=== PATIENT | male | born 1945 | race Caucasian/White ===

== ENCOUNTER 2016-07-17 12:13 | Inpatient (IN) | payer OTHER ==
[2016-07-17] MEDS ORDERED: BOOSTRIX VACCINE IM ONE (12:42)
--- NOTE | 2016-07-17 12:47 | PROVIDER DOCUMENTATION ---
Addendum entered and electronically signed by Daphnie Su Scribe 07/17/16 15:10 : EKG Interpretation - EKG Time of EKG reading by physician:: 14:40 EKG Read and Signed by:: Denys Frazier EKG Interpretation (*Must complete 3 of following elements*): Abnormal Rate: 70 Rhythm: normal sinus rhythm Comments: possible L atrial enlargement; nonspecific T wave abnormality. Original Note: HPI-Musculoskeletal Pain/Inj - GENERAL Source: patient, family (son in law) - HX OF PRESENT ILLNESS-MUSKULOSKELTAL Quality of Pain: reports: aching Severity in ED: mild Onset/Duration: this morning Timing: still present, intermittent, getting worse Modifying Factors: improves with: nothing Any recent injury?: Yes (fall) Locality of Occurance: Home Similar Symptoms Previously?: No Recently seen or treated by another doctor?: No - FALL INJURY Location of Pain/Injury: reports: head (hit head during fall), lower extremity ( L hip) Pain Radiation: reports: no radiation Reason for Fall: reports: unknown Symptoms prior to fall:: reports: none Loss of Consciousness: no loss of consciousness Injury Associated Symptoms: reports: joint pain (L hip), trouble walking (due to prior stroke). denies: arm pain, back/neck pain, chest pain, diaphoresis, dizziness, headaches, muscle aches, nausea, puncture wound, shortness of breath , sensory/motor loss, snap/crack/pop sensation, pain with inspiration, unable to bear weight, vomiting, weakness - HIP/PELVIS PAIN/INJURY Hip Pain Location: reports: hip (L) Pain Radiation: reports: no radiation Context / Method of Injury: reports: fall Associated Symptoms: reports: weakness in legs/feet (L weakness due to prior stroke). denies: loss of bladder control, loss of bowel control, lower back pain, muscle spasms, numbness in legs/feet, sensory/motor loss, tingling in legs /feet - LOWER EXTREMITY PAIN/INJURY Lower Extremities Pain: hip: left (pain ) Context / Method of Injury: reports: fell Associated Symptoms: reports: weakness in legs/feet (L due to prior stroke). denies: loss of bladder control, loss of bowel control, lower back pain, muscle spasms, numbness in legs/feet, sensory/motor loss, tingling in legs/feet <Daphnie Su - Last Filed: 07/17/16 12:42> <Harry Fraziercody Jim - Last Filed: 07/17/16 13:20> - GENERAL Chief Complaint: Fall Stated Complaint: FALL, L HIP PAIN Time Seen by Provider: 07/17/16 12:30 - HX OF PRESENT ILLNESS-MUSKULOSKELTAL Nature of Presenting Problem: Pt is 71 y/o M presents to the ED with fall. Pt's son in law states Pt fell after going to the bathroom. Pt's son in law states fall happened at 0300 this morning. Pt's son in law states Pt hit his head when he fell. Pt states having a stroke in December of 2015. (Daphnie Su) Review of Systems - Adult - REVIEW OF SYSTEMS - ADULT Constitutional: denies: chills, fever Eyes: denies: blurred vision, double vision Ears, Nose, Mouth & Throat: denies: ear pain, nose pain, throat pain Cardiovascular: denies: chest pain, heart murmur, irregular heart rate Respiratory: denies: cough, shortness of breath, wheezing Gastrointestinal: denies: abdominal pain, diarrhea, nausea, vomiting Genitourinary: denies: dysuria, discharge, hematuria Musculoskeletal: reports: joint pain (L hip). denies: bone pain, neck pain Integumentary: denies: hives, itching Neurological: denies: dizziness/vertigo, headache/migraines Psychiatric: reports: no symptoms reported Endocrine: reports: no symptoms reported Hematologic/Lymphatic: reports: no symptoms reported Allergic/Immunologic: reports: no symptoms reported All Other Systems: Reviewed and Negative <Daphnie Su - Last Filed: 07/17/16 12:42> Past History - Adult - PAST MEDICAL HISTORY-ADULT Review of Records: reports: Nursing Assessment Review, Medications Reviewed, Social history reviewed & non-contributory. Major Childhood Illnesses: reports: denies history Cardiovascular: reports: CAD, HTN, hyperlipidemia Respiratory: reports: COPD Gastrointestinal: reports: GERD Obstetrical/Gynecological: reports: denies history Genitourinary: reports: denies history Musculoskeletal: reports: chronic pain Neurological: reports: CVA Endocrine/Immune: reports: denies history Other Conditions: reports: denies history - PRIOR SURGERIES/PROCEDURES Surgical/Procedure History: reports: cardiac stent, other (prostate) - PRIOR HOSPITALIZATIONS Prior Hospitalizations: reports: none - IMMUNIZATION STATUS Childhood Immunizations: See Nurse Assessment Flu Vaccine: See Nurse Assessment - FAMILY HISTORY Family History: reviewed, not pertinent - SOCIAL HISTORY Smoking: cigarettes, greater than 1 pack/day Provider spent 3-5 mins advising pt. on dangers of tobacco.: Discussed manners to quit use, and f/u contacts for add'l counseling. Substance Use: denies Living Situation: family <Daphnie Su - Last Filed: 07/17/16 12:42> Physical Exam-Injury Related - Physical Exam-Injury Related General Appearance: appears well, alert, no apparent distress Eyes: PERRL/EOMI, pink conjunctivae Head, Ears, Nose, Mouth & Throat: normocephalic/atraumatic, moist mucous membranes, normal ENT inspection, TMs normal, pharynx normal Neck: non-tender, full range of motion, supple, normal inspection Respiratory: chest non-tender, lungs clear, normal breath sounds, no pleuratic chest pain, no respiratory distress, no accessory muscle use Cardiovascular: normal peripheral pulses, regular rate, rhythm, no edema, no gallop, no JVD, no murmur Abdominal Exam: normal bowel sounds, non tender, soft, no organomegaly, no pulsatile mass Lymphatic: no adenopathy Back Exam: normal inspection, no CVA tenderness, no vertebral tenderness Extremity: no pedal edema, no calf tenderness, normal capillary refill, pelvis stable, tenderness (L hip). 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 Will admit to Dr. Porter for Dr. Puga) - CONSULTS/PCP/HOSPITALIST Notification Time Discussed: 13:17 Reason/Comments: Dr. Rosales Consult Disposition: Will see in ED, Admit <Denys Frazier X - Last Filed: 07/17/16 13:20> - PLAN OF CARE/RESULTS Progress/Plan/Lab Results: Orders Category Date Time Status CHEST-PORTABLE [RAD] Stat Exams 07/17/16 12:15 Ordered LOWER LEG-RIGHT [RAD] Stat Exams 07/17/16 12:42 Ordered XRAY PELVIS W/HIP 2-3VW LT [RAD] Stat Exams 07/17/16 12:21 Ordered Diph,Pertuss(Acell),Tet Vac/Pf [Boostrix Vaccine] Med 07/17/16 12:42 Discontinued 0.5 ml IM .ONCE ONE Vital Signs - 24 hr 07/17/16 12:16 Temperature 99.3 F Pulse Rate 71 Respiratory 17 Rate Blood Pressure 164/66 O2 Sat by Pulse 97 Oximetry (Daphnie Su) Orders Category Date Time Status Cardiac Monitoring DIRECTED Care 07/17/16 13:06 Active Saline Loc NOW Care 07/17/16 13:06 Active CHEST-PORTABLE [RAD] Stat Exams 07/17/16 12:15 Taken LOWER LEG-RIGHT [RAD] Stat Exams 07/17/16 12:42 Taken XRAY PELVIS W/HIP 2-3VW LT [RAD] Stat Exams 07/17/16 12:21 Taken CBC WITH ELECTRONIC DIFF [HEME] Stat Lab 07/17/16 13:06 Uncollected CK PROFILE [SP CHEM] Stat Lab 07/17/16 13:06 Uncollected COMPREHENSIVE METABOLIC PANEL [CHEM] Stat Lab 07/17/16 13:06 Uncollected MAGNESIUM [CHEM] Stat Lab 07/17/16 13:06 Uncollected PRO B-NATRIURETIC PEPTIDE Stat Lab 07/17/16 13:06 Uncollected PROTIME WITH INR [COAG] Stat Lab 07/17/16 13:06 Uncollected PTT [COAG] Stat Lab 07/17/16 13:06 Uncollected TROPONIN T Stat Lab 07/17/16 13:06 Uncollected 0.9% Sodium Chloride Inj [Ns] 1,000 ml Med 07/17/16 13:08 Active IV 999 mls/hr Diph,Pertuss(Acell),Tet Vac/Pf [Boostrix Vaccine] Med 07/17/16 12:42 Discontinued 0.5 ml IM .ONCE ONE Hydromorphone [Dilaudid] Med 07/17/16 13:10 Discontinued 1 mg IV NOW ONE Ondansetron [Zofran] Med 07/17/16 13:10 Discontinued 4 mg IV NOW ONE EKG [EKG] Stat Ther 07/17/16 13:06 Ordered Vital Signs Temp Pulse Resp BP Pulse Ox 07/17/16 12:16 99.3 F 71 17 164/66 97 levofloxacin [[facility]] Allergy (Severe, Verified 07/17/16 12:25) RASH morphine Adverse Reaction (Severe, Verified 07/17/16 12:25) Unknown causes a change in mental status Omeprazole [Prilosec] 40 mg PO DAILY 09/06/14 Citalopram Hydrobromide [Celexa] 40 mg PO DAILY 12/29/15 ATORVAstatin [Lipitor] 40 mg PO QHS #0 tablet 01/19/16 Apixaban [Eliquis] 5 mg PO BID #60 tablet 01/19/16 Folic Acid 1 mg PO DAILY #0 tablet 01/19/16 Hydrocodone/APAP 10 mg/325 mg [Tok-10] 1 each PO TID PRN #30 tablet 01/19/16 Lamotrigine [Lamictal] 50 mg PO BID #0 tablet 01/19/16 Tiotropium [place] Inhaler [Spiriva] 1 puff INH RTDAILY #1 inhaler 01/19/16 Diltiazem C.d. [Cardizem Cd] 180 mg PO HS 04/08/16 Aspirin 81 mg PO DAILY #30 chewtab 04/10/16 Doxycycline 100 mg PO BID #10 capsule 04/25/16 Furosemide [Lasix] 20 mg PO DAILY #60 tablet 04/25/16 LISINOpril [Prinivil] 5 mg PO DAILY #120 tablet 04/25/16 (Denys Frazier) Departure <Daphnie Su - Last Filed: 07/17/16 12:42> - Departure Time of Disposition Order: 13:17 Certified Medical Emergency: Emergent <Denys Frazier - Last Filed: 07/17/16 13:20> - Departure DIAGNOSIS: Closed left hip fracture Qualifiers: Encounter type: initial encounter Qualified Code(s): S72.002A - Fracture of unspecified part of neck of left femur, initial encounter for closed fracture Disposition: HOME 01 Condition: Stable Attestation - Scribe Verification/Attestation Scribe:: Daphnie Su Acting as Scribe for:: Denys Frazier Scribe documention review:: This chart was documented by a scribe and accurately reflects the service the provider performed and the decisions made by the provider. <Daphnie Su - Last Filed: 07/17/16 12:42> Physician Attestation
[2016-07-17] MEDS ORDERED: NS 1,000 ML IV ONE (13:08)
[2016-07-17] MEDS ORDERED: ZOFRAN IV ONE (13:10)
[2016-07-17] MEDS ORDERED: DILAUDID IV ONE (13:10)
[2016-07-17 14:13] LABS: MANUAL DIFF NEEDED? NO
[2016-07-17 14:17] LABS: BASO% 0.2 % (0.0-0.8); EOS# 0.32 X1000 (0.0-0.7); EOS% 2.4 % (0.0-10.0); HEMOGLOBIN 11.5 g/dL (14.0-18.0); IMM GRAN# 0.03 X1000 (0.0-0.04); IMM GRAN% 0.2 % (0.0-0.5); LYMPH# 2.27 X1000 (1.2-3.4); LYMPH% 17.3 % (20.5-51.1); MCH 25.2 PG (27-31); MCHC 31.9 g/dL (33-37); MCV 78.9 FL (81-99); MONO# 1.23 X1000 (0.11-0.59); MONO% 9.4 % (1.7-9.3); MPV 10.5 FL (7.4-10.4); NEUT% 70.5 % (42.2-75.2); PLT 269 X1000 (130-400); RBC 4.56 XMIL (4.7-6.1)
[2016-07-17 14:26] LABS: INR 1.05; PROTIME 11.1 Seconds (9.2-11.7); PTT 26.8 Seconds (22.0-36.0)
[2016-07-17 14:33] LABS: AGAP 13; ALBUMIN 3.7 g/dL (3.5-5.0); ALKALINE PHOSPHATASE 136 U/L (32-122); BUN 14 mg/dL (8-22); CALCIUM 8.8 mg/dL (8.8-10.2); CHLORIDE 99 mmol/L (98-107); COSMO 272; GOT 24 U/L (10-34); GPT 19 U/L (10-44); MAGNESIUM 2.1 mg/dL (1.5-2.7); POTASSIUM 4.8 mmol/L (3.5-5.1); SODIUM 136 mmol/L (136-145); TCO2 24 mmol/L (25-35); TOTAL BILIRUBIN 0.35 mg/dL (0.20-1.00); TOTAL PROTEIN 6.7 g/dL (6.3-8.3)
[2016-07-17] MEDS ORDERED: TYLENOL PO PRN (14:55)
[2016-07-17] MEDS ORDERED: ZOFRAN IV PRN (14:55)
[2016-07-17 15:18] LABS: CK PROFILE 129 U/L (24-204)
[2016-07-17] MEDS: NORCO-7.5 PO PRN ×2 (16:12→20:37)
--- NOTE | 2016-07-17 17:44 | HISTORY AND PHYSICAL ---
HISTORY OF PRESENT ILLNESS: This is a 71-year-old male well known to our service. He has a history of: 1. Severe coronary artery disease. 2. Severe carotid artery disease. 3. Severe COPD requiring home O2. 4. Chronic pain syndrome. For a time he was on narcotic therapy. OTHER PAST MEDICAL HISTORY: 1. Recent CVA and left-sided hemiparesis. 2. Hypertension. 3. Chronic pain syndrome. 4. Nicotine dependence. 5. Questionable history of polysubstance abuse in the past. 6. Paroxysmal atrial fibrillation. PAST SURGICAL HISTORY: Had a carotid endarterectomy. Recent cervical spine fusion. Coronary stent placement. Cataract removal with IOL insertion bilaterally. SOCIAL HISTORY: Patient lives with his son who checks on him. Daughter checking on him constantly. He has remote history of alcohol dependence, he was smoking 2 packs a day and does not use any illicit drugs. Questionable history of prescription drug dependence in the past. According to his daughter he has had trouble with this before, getting medications there really altered mental status. HISTORY OF PRESENT ILLNESS: Apparently he got up to go to the bathroom and he urinated on the floor and slipped on the urine, fell and broke his left hip. He has a left intertrochanteric hip fracture. FAMILY HISTORY: Noncontributory. REVIEW OF SYSTEMS: General: No weight gain or loss. No fever or chills. HEENT: Unremarkable. Respiratory: No increased work of breathing or dyspnea. Cardiovascular: No chest pain or tachy palpitation. GI: Unremarkable. : Unremarkable. Musculoskeletal/Neurologic: No significant complaints. Endocrinologic/Hematologic: No significant history. PHYSICAL EXAMINATION: VITAL SIGNS: Temperature 99.3 degrees, pulse 70, respirations 17, blood pressure 164/66. O2 saturation 97%. HEENT: Pupils are equal, round, reactive. Oral and nasal mucosa unremarkable. CVP less than 6 cm. LUNGS: Clear in all lung gallego. CARDIOVASCULAR: Regular rate without murmur or S3. ABDOMEN: Soft. SKIN: Warm and dry. Weight 142 pounds, height 6 feet. EXTREMITIES: Left leg external rotation shorter than the right. Pain and swelling in the left hip. He has been given some medication. I think he is sleeping at the present time. HISTORY OF HOME MEDICATIONS: Lipitor 40 mg at bedtime, Eliquis 5 mg p.o. b.i.d., aspirin 81 mg a day, Celexa 40 mg a day, Cardizem CD 180 mg at bedtime, doxycycline 100 mg b.i.d., folic acid 1 daily, Lasix 20 mg daily, hydrocodone at 10 mg-325, he takes it 3 times a day p.r.n. for pain, Prinivil 5 mg a day, Lamictal 50 mg b.i.d., Prilosec 40 mg a day, tiotropium bromide inhaler (Spiriva) 1 puff daily. ASSESSMENT AND PLAN: 1. Left intertrochanteric hip fracture. I will admit, put into [place] traction. We are going to need to stop his Eliquis and he will probably need to wait a couple days before he will be eligible for surgery. We will give him some IV fluids. I want to check some blood work. Check his renal function, liver function and blood counts. Check an electrocardiogram and chest x-ray. 2. History of cerebrovascular accident fairly recently. Aware. Left side weakness. Shuffles with that left side, but he can get into a wheelchair and I do think we are going to have to pursue repairing this fracture. 3. History of severe coronary artery disease. Severe carotid artery disease. He has had a left carotid endarterectomy. 4. Chronic obstructive pulmonary disease. He is on home O2. Air exchange and gas exchange appear to be pretty good at this time. We will check some blood gases. 5. Paroxysmal atrial fibrillation, aware.
--- NOTE | 2016-07-17 18:14 | Diag Imaging Result Document ---
PROCEDURE NAME: CHEST-PORTABLE - 07/17/2016 AP CHEST: FINDINGS: There is a pleural effusion on the right which is slightly smaller than on 06/04/2016. There is still some compressive atelectasis in the right base. IMPRESSION: Improving right pleural effusion.
--- NOTE | 2016-07-17 18:15 | Diag Imaging Result Document ---
PROCEDURE NAME: LOWER LEG-RIGHT - 07/17/2016 RIGHT LOWER LEG AP AND LATERAL , 4 VIEWS: FINDINGS: There is no evidence of fracture or dislocation. No other definite bony abnormalities are present. IMPRESSION: No acute disease.
--- NOTE | 2016-07-17 18:19 | Diag Imaging Result Document ---
PROCEDURE NAME: XRAY PELVIS W/HIP 2-3VW LT - 07/17/2016 AP PELVIS AND LEFT HIP: FINDINGS: There is an intertrochanteric fracture on the left. The hip joint spaces are well maintained. There is generalized osteopenia. IMPRESSION: Left intertrochanteric fracture.
[2016-07-17] MEDS: LAMICTAL PO SCH (20:36)
[2016-07-17] MEDS: CARDIZEM CD PO SCH (20:36)
[2016-07-17] MEDS: LIPITOR PO SCH (20:37)
--- NOTE | 2016-07-17 22:23 | CONSULTATION ---
DATE OF CONSULTATION: 07/17/2016 CHIEF COMPLAINT: Left hip pain. HISTORY OF PRESENT ILLNESS: Mr. Del Angel is a 71-year-old male who fell in his home today and came to the ER with left hip pain. X-rays showed a left hip fracture. He was admitted to the Medicine Service and Orthopedics was consulted. Most of his pain is in the left hip. He cannot ambulate secondary to the pain. Any movement causes pain. Keeping it still makes it feel the best. PAST MEDICAL HISTORY: Fairly extensive, recent CVA, left-sided hemiparesis, carotid artery stenosis, coronary artery disease, hypertension, COPD, atrial fibrillation. PAST SURGICAL HISTORY: Carotid endarterectomy, ACDF, fusion, coronary artery stent. SOCIAL HISTORY: The patient lives with his son. He does use alcohol and smokes a lot. HOME MEDICATIONS: Celexa, Cardizem, Prilosec, Percocet, Lipitor, Eliquis, aspirin, folic acid, [place], Lamictal, Spiriva. ALLERGIES: Levaquin and morphine. REVIEW OF SYSTEMS: Positive for left hip pain, recent stroke. Recent hospitalization for unresponsiveness. PHYSICAL EXAMINATION: General: Mildly distressed 71-year-old male lying in bed. Head and neck: Normocephalic, atraumatic. Respirations: Nonlabored. Cardiovascular: Regular rate. Abdomen: Nondistended. Extremity: Left lower exam, tenderness to palpation of the left hip, no tenderness to palpation at the knee or ankle. He can dorsiflex plantarflex the ankle and toes very well. Good sensation to light touch to the toes and a 1+ DP pulse. He has an area of ecchymosis on the right leg, but no tenderness to palpation around that area. No tenderness to palpation of the bilateral upper extremities. Although he has some skin tears to that left arm. RADIOGRAPHS: Two views of the left hip shows an intertrochanteric fracture with some shortening. Left lower extremity exam, I do not see a fracture. ASSESSMENT: Left intertrochanteric fracture. PLAN: I discussed with Mr. Del Angel and his caregiver who is in the room about this hip fracture. I would recommend surgical intervention for this, which would be a left trochanteric femoral nailing. I went over with him the procedure, risks, benefits, potential complications. Risks include, but are not limited to infection, wound healing problems, damage to nerves, arteries, veins, numbness, malunion, nonunion, hardware-related issues, continued pain, deep venous thrombosis and anesthesia-related risks. After discussing these with the patient, he expressed understanding and wished to proceed. This will be somewhat of a high risk surgery secondary to his medical comorbidities, especially with his heart history and his stroke history, but I discussed with him that if we do not do surgery, then the likelihood of him walking is extremely low and his mortality rate will go really high. So we will plan on getting this done in the morning. He will be nothing per oral after midnight.
[2016-07-18] MEDS: NORCO-7.5 PO PRN ×3 (01:47→16:43)
[2016-07-18] MEDS: NS 1,000 ML IV SCH ×3 (01:47→15:02)
[2016-07-18 05:46] LABS: MANUAL DIFF NEEDED? NO
[2016-07-18 06:00] LABS: BASO% 0.3 % (0.0-0.8); EOS# 0.74 X1000 (0.0-0.7); EOS% 7.6 % (0.0-10.0); HEMATOCRIT 32.8 % (42.0-52.0); HEMOGLOBIN 10.3 g/dL (14.0-18.0); IMM GRAN# 0.02 X1000 (0.0-0.04); IMM GRAN% 0.2 % (0.0-0.5); LYMPH# 2.58 X1000 (1.2-3.4); LYMPH% 26.7 % (20.5-51.1); MCH 25.2 PG (27-31); MCHC 31.4 g/dL (33-37); MCV 80.2 FL (81-99); MONO# 0.92 X1000 (0.11-0.59); MONO% 9.5 % (1.7-9.3); MPV 10.6 FL (7.4-10.4); NEUT% 55.7 % (42.2-75.2); PLT 247 X1000 (130-400); RBC 4.09 XMIL (4.7-6.1)
[2016-07-18] MEDS: PRILOSEC PO SCH (06:58)
[2016-07-18 07:20] LABS: ALBUMIN 3.2 g/dL (3.5-5.0); CALCIUM 8.5 mg/dL (8.8-10.2); POTASSIUM 4.6 mmol/L (3.5-5.1); TOTAL BILIRUBIN 0.36 mg/dL (0.20-1.00)
--- NOTE | 2016-07-18 08:29 | PROGRESS NOTE ---
DATE: 07/18/2016 SUBJECTIVE: Mr. Del Angel is lying in bed this morning. He says he is ready to get his leg fixed. Still complained of pain on the left side whenever he moves. OBJECTIVE: Left lower extremity exam, still some tenderness to palpation to the left hip. The left hip was marked as the correct surgical site at bedside with his son in the room, and his caregiver was in the room with us. He is still able to dorsiflex and plantar flex the toes and foot very well. ASSESSMENT: Left intertrochanteric femur fracture. PLAN: Will plan on fixing this hip today with trochanteric femoral nailing. Mr. Del Angel was NPO and we will get him down stairs soon.
--- NOTE | 2016-07-18 08:32 | EKG Report ---
Test Performed on : 07/17/2016 2:40:12 PM Test Reason : Chest Pain Blood Pressure : / mmHG Vent. Rate : 070 BPM Atrial Rate : 070 BPM P-R Int : 126 ms QRS Dur : 082 ms QT Int : 422 ms P-R-T Axes : 078 063 071 degrees QTc Int : 455 ms Normal sinus rhythm. Possible Left atrial enlargement Nonspecific T wave abnormality Abnormal ECG When compared with ECG of 17-JUL-2016 14:39, (Unconfirmed) Sinus rhythm. has replaced Atrial flutter. Unconfirmed Result
[2016-07-18] MEDS: PRINIVIL PO SCH (08:57)
[2016-07-18] MEDS: LAMICTAL PO SCH ×3 (08:57→22:54)
[2016-07-18] MEDS: ASPIRIN PO SCH (08:57)
[2016-07-18] MEDS: CELEXA PO SCH (08:58)
[2016-07-18] MEDS ORDERED: NON-FORMULARY MED (Omeprazole [Prilosec] 40 MG) PO SCH (09:00)
[2016-07-18] MEDS: SPIRIVA INH SCH (09:32)
[2016-07-18] MEDS ORDERED: KEFZOL 1 GM/D5W 50 ML ONE (12:46)
[2016-07-18] MEDS ORDERED: CLAVE SECONDARY SET 11953 ONE (12:46)
[2016-07-18 14:05] LABS: URINE MICRO REVIEW NEEDED? NO; URINE SOURCE CATH
[2016-07-18 14:09] LABS: BILIRUBIN URINE NEGATIVE (NEGATIVE); BLOOD URINE NEGATIVE (NEGATIVE); COLOR YELLOW; GLUCOSE URINE NEGATIVE (NEGATIVE); LEUKOCYTES URINE NEGATIVE (NEGATIVE); NITRITE URINE NEGATIVE (NEGATIVE); PH URINE 5.5; PROTEIN URINE NEGATIVE (NEGATIVE); SP GRAVITY URINE 1.016; TURBIDITY URINE CLEAR (CLEAR); UROBILINOGEN URINE NORMAL (NORMAL)
[2016-07-18 14:10] LABS: UR EPITHELIAL CELLS <10 /HPF (<10); URINE BACTERIA NEGATIVE /HPF; URINE RBC <10 /HPF (<10); URINE WBC <10 /HPF (<10)
[2016-07-18] MEDS ORDERED: FENTANYL ONE (14:29)
[2016-07-18] MEDS ORDERED: DIPRIVAN 1% ONE (14:30)
--- NOTE | 2016-07-18 14:33 | OPERATIVE NOTE ---
PROCEDURE DATE: 07/18/2016 PREOPERATIVE DIAGNOSES: Left intertrochanteric femur fracture. POSTOPERATIVE DIAGNOSIS: Left intertrochanteric femur fracture. PROCEDURE PERFORMED: Left trochanteric femoral nailing. SURGEON: Kenny Queen MD SODA WORKER: None. ANESTHESIA: Spinal. BLOOD LOSS: About 30 mL. IMPLANT: Synthes trochanteric femoral nail 11 x 400. DISPOSITION: To PACU, hemodynamically stable. INDICATIONS FOR PROCEDURE: Mr. Malgorzata Del Angel is a 71-year-old male who presented to the emergency department here at [facility] for left hip pain after a fall. He was diagnosed with a left intertrochanteric fracture. I saw him yesterday and discussed with him about surgical intervention, and he wished to proceed. DESCRIPTION OF PROCEDURE: Mr. Del Angel was identified in the preoperative holding area. I had marked his left hip this morning when I saw him at bedside and it was confirmed that the left was the correct surgical site. He was then wheeled to the operating room and kept on his own bed. Spinal anesthesia was administered. He was then placed on the traction bed with the traction boots on both feet. Some slight traction was placed on the left lower extremity. Fluoroscopic imaging showed that we had good reduction, after which we applied some traction and some manipulation. The left lower extremity was then prepped with ChloraPrep and draped in the normal sterile fashion. A surgical pause was performed. We identified the correct patient, the correct side, and the correct procedure. Preoperative antibiotics were given. I started with an incision just proximal to the greater trochanter. I got my guidewire in an optimal position for a trochanteric femoral nail. I advanced it and then opened up to the canal with my opening reamer. I passed a long guidewire down, sized it to a size 400 and then sequentially reamed to a size 12. We elected to use an 11 x 400 Synthes trochanteric femoral nail. We passed it down. I made an incision on the lateral aspect to advance the guidewire for the blade. AP and lateral images showed that we had good reduction and also good position of the wire on AP and lateral views. I then drilled and then passed the blade. I locked it into place. I did a little bit of compression on there. I then took the outrigger off. Final images were taken, which showed we had good reduction of our intertrochanteric fracture. It was very stable, so I elected not to put any distal interlocking screws in. Incisions were then irrigated copiously with normal saline. The deep layer was closed with 0 Vicryl, 2-0 Vicryl for the subcu, and armaan on the skin. Adaptic, 4 x 4's, ABD, and tape were then applied. The patient was then moved to his own bed and taken to the PACU in stable condition. Postoperatively, he will be weightbearing as tolerated on the left lower extremity. He will start back on his Eliquis postoperatively. We will get Bottle House Pumper involved for placement.
[2016-07-18] MEDS ORDERED: OXY IR PO PRN ×2 (15:27→17:54)
[2016-07-18] MEDS ORDERED: MORPHINE IV PRN (15:27)
[2016-07-18] MEDS ORDERED: HALDOL IV PRN (15:27)
[2016-07-18] MEDS ORDERED: MILK OF MAGNESIA PO PRN (15:27)
[2016-07-18] MEDS ORDERED: ZOFRAN IV PRN (15:27)
--- NOTE | 2016-07-18 15:31 | PROGRESS NOTE ---
DATE: 07/18/2016 SUBJECTIVE: Patient is complaining of mild pain in the left leg. OBJECTIVE: Vital Signs: Temperature 98.9 degrees, heart rate 55, respiratory 17, blood pressure 121/59, O2 saturation 95% on 2 L nasal cannula. General exam: This is a 71-year-old female lying in bed, in no acute distress. HEENT: Head is normocephalic, atraumatic. Anicteric sclerae. Pale conjunctivae. Mucous membranes moist. Neck: Supple. No JVD noted. No carotid bruits. No lymphadenopathy. No thyromegaly. Cardiovascular: S1, S2 heard. No murmurs, gallops, or rubs. Regular rate and rhythm. Respiratory: Clear bilaterally to auscultation. No work of breathing or using accessory muscles. Abdomen: Soft. Nontender to palpation. Bowel sounds present. No organomegaly. Extremities: Left leg external rotation and shortening of the left leg. Neurological: Patient moves 4 extremities. LABORATORY DATA: White cell count 9.68, hemoglobin 10.3, hematocrit 32.8, platelets 247,000. BMP unremarkable except worsening BABS at 1.5. ASSESSMENT AND PLAN: 1. Left intertrochanteric femur fracture. Patient has gone for surgery. 2. Acute kidney injury, worsening. The creatinine yesterday was 1.1 and today it is 1.5. At this time we are going to provide fluid resuscitation. In this case, this patient is clinically getting 85 mL/h normal saline. At this point we will continue with the same management. 3. History of severe coronary artery disease. At this point patient is not having any chest pain. We will continue with the same management. 4. Chronic obstructive pulmonary disease. Patient is not in any exacerbation and he uses home oxygen. Will continue with the same plan. 5. History of cerebrovascular accident. Left-sided weakness. The patient is doing fine.
[2016-07-18] MEDS: TYLENOL PO SCH ×2 (16:43→18:52)
[2016-07-18] MEDS: NICODERM PATCH TD SCH (17:25)
[2016-07-18] MEDS ORDERED: DILAUDID IV PRN (17:58)
[2016-07-18] MEDS: OXY IR PO PRN ×2 (18:52→22:12)
[2016-07-18] MEDS: OXYCONTIN PO SCH (19:02)
[2016-07-18] MEDS: KEFZOL 1 GM/D5W 50 ML IV SCH ×2 (19:49→22:54)
[2016-07-18] MEDS: LIPITOR PO SCH ×2 (19:50→22:54)
[2016-07-18] MEDS: CARDIZEM CD PO SCH ×2 (19:50→22:53)
[2016-07-18] MEDS: COLACE PO SCH ×2 (19:50→22:54)
[2016-07-18] MEDS: PERIDEX MT SCH (19:50)
[2016-07-18] MEDS: ELIQUIS PO SCH (23:10)
[2016-07-19] MEDS: PERIDEX MT SCH ×3 (01:21→20:32)
[2016-07-19] MEDS: OXY IR PO PRN ×5 (02:07→20:32)
[2016-07-19] MEDS: NS 1,000 ML IV SCH ×2 (02:11→18:07)
[2016-07-19 02:44] LABS: URINE SOURCE CATH
[2016-07-19 02:46] LABS: BILIRUBIN URINE NEGATIVE (NEGATIVE); BLOOD URINE NEGATIVE (NEGATIVE); COLOR YELLOW; GLUCOSE URINE NEGATIVE (NEGATIVE); LEUKOCYTES URINE TRACE (NEGATIVE); NITRITE URINE NEGATIVE (NEGATIVE); PROTEIN URINE TRACE mg/dL (NEGATIVE); SP GRAVITY URINE 1.028; TURBIDITY URINE CLEAR (CLEAR); UROBILINOGEN URINE NORMAL (NORMAL)
[2016-07-19 02:47] LABS: URINE MICRO REVIEW NEEDED? YES
[2016-07-19 02:55] LABS: UR EPITHELIAL CELLS <10 /HPF (<10); URINE BACTERIA NEGATIVE /HPF; URINE CULTURE NEEDED? YES; URINE RBC <10 /HPF (<10); URINE WBC <10 /HPF (<10)
[2016-07-19 03:15] LABS: URINE CASTS NONE SEEN; URINE CRYSTALS NONE SEEN; URINE SMALL ROUND CELLS NONE SEEN
[2016-07-19] MEDS: KEFZOL 1 GM/D5W 50 ML IV SCH ×2 (05:44→13:01)
[2016-07-19] MEDS: TYLENOL PO SCH ×3 (05:44→20:34)
[2016-07-19] MEDS ORDERED: LOVENOX SUBQ SCH (06:00)
[2016-07-19 06:03] LABS: HEMATOCRIT 35.6 % (42.0-52.0)
[2016-07-19 06:22] LABS: AGAP 12; BUN 17 mg/dL (8-22); CALCIUM 8.8 mg/dL (8.8-10.2); CHLORIDE 103 mmol/L (98-107); COSMO 279; SODIUM 139 mmol/L (136-145); TCO2 24 mmol/L (25-35)
--- NOTE | 2016-07-19 07:12 | PROGRESS NOTE ---
DATE: 07/19/2016 SUBJECTIVE: Mr. Del Angel is postoperative day 1 from his left hip trochanteric femoral nailing, and he is a little bit confused this morning, but overall, his pain seems fairly well controlled. OBJECTIVE: Left lower extremity exam, the dressings are clean, dry, and intact. He can dorsiflex and plantar flex the foot well. He has good sensation to light touch to the toes. ASSESSMENT: Status post left trochanteric femoral nailing for hip fracture. PLAN: I am okay with Mr. Del Angel being weight bear as tolerated to the left lower extremity. He is going to start working with physical therapy today. The social studies teacher team will also be involved for placement issues.
[2016-07-19] MEDS: OXYCONTIN PO SCH ×2 (07:13→18:48)
[2016-07-19] MEDS: PRILOSEC PO SCH (07:13)
[2016-07-19] MEDS: SPIRIVA INH SCH (08:01)
[2016-07-19] MEDS: ELIQUIS PO SCH ×2 (08:34→20:33)
[2016-07-19] MEDS: ASPIRIN PO SCH (08:34)
[2016-07-19] MEDS: PRINIVIL PO SCH (08:34)
[2016-07-19] MEDS: FERROUS SULFATE PO SCH (08:34)
[2016-07-19] MEDS: CELEXA PO SCH (08:35)
[2016-07-19] MEDS: LAMICTAL PO SCH ×2 (08:35→20:33)
[2016-07-19] MEDS: NICODERM PATCH TD SCH (08:36)
[2016-07-19] MEDS ORDERED: NS 250 ML ONE (08:43)
[2016-07-19] MEDS ORDERED: ZOFRAN ONE (08:43)
[2016-07-19] MEDS ORDERED: XYLOCAINE-MPF 2% ONE (08:43)
[2016-07-19] MEDS ORDERED: PIGGYBACK SET 7393 ONE (08:43)
[2016-07-19] MEDS ORDERED: LR 1,000 ML ONE (08:43)
[2016-07-19] MEDS ORDERED: NEO-SYNEPHRINE ONE (08:43)
[2016-07-19] MEDS ORDERED: ANESTHESIA PB SET 88 IN 5742 ONE (08:43)
[2016-07-19] MEDS ORDERED: EXTENSION SET 32 IN 4522 ONE (08:43)
--- NOTE | 2016-07-19 12:48 | PROGRESS NOTE ---
DATE: 07/19/2016 SUBJECTIVE: This is a 71-year-old patient with known severe coronary artery disease, severe carotid disease, severe COPD, chronic home O2, chronic pain syndrome. She had a recent CVA with left-sided hemiparesis, hypertension, chronic pain syndrome, nicotine dependence, paroxysmal atrial fib, and questionable history of substance abuse in the past. This 71-year-old male had presented with a left intertrochanteric hip fracture. Surgery performed this morning per Dr. Queen status post left trochanteric femoral nailing for hip fracture. This seems to be comfortable. PHYSICAL EXAMINATION: Vital Signs: On exam today, temp 98.9 degrees, pulse 69, respirations 18, and blood pressure 119/40. Lungs: Clear in all lung gallego. Cardiovascular: Regular rhythm and rate without murmur or S3. Abdomen: Soft. Skin: Warm and dry. INTAKE AND OUTPUT: Good urine output from yesterday. LABORATORY DATA: Lab reviewed from this morning. Hematocrit 35. Hemoglobin 11. ASSESSMENT AND PLAN: 1. Left intertrochanteric femoral fracture repair this morning. 2. Acute kidney injury. Watch creatinine. Yesterday, it was 1.5. Continue fluids. 3. History of coronary artery disease. History of peripheral vascular disease. 4. Chronic obstructive pulmonary disease, on home O2. 5. Recent cerebrovascular accident. Will repeat electrolytes again but, today, creatinine down to 1.1, which is encouraging, looking at lab. REVIEW OF RECORD: He is on oxycodone ER 30 mg q.12. Apixaban 5 mg b.i.d. Nicotine patch 21 mg patch daily. Iron 325 daily. Docusate 200 mg at bedtime. Lisinopril 5 mg a day. Lamictal 50 mg b.i.d. Celexa 40 mg a day. Lipitor 40 mg a day. Diltiazem CD 180 mg at bedtime. Will check electrolytes again in the morning. At present, he is getting normal saline at 85 mL an hour. His chest x-ray from the first, improving right pleural effusion. We will check another chest x-ray in the morning. Check electrolytes and CBC. Initiate physical therapy.
--- NOTE | 2016-07-19 13:32 | Diag Imaging Result Document ---
PROCEDURE NAME: CHEST-PORTABLE - 07/19/2016 PORTABLE CHEST X-RAY, 07/19/2016: COMPARISON: 07/17/2016. FINDINGS: There is perhaps slight worsening in the small right basilar pleural effusion. There is worsening in the right basilar infiltrate adjacent to this. There is some similar appearing patchy atelectasis in the left base. Heart size remains top normal. IMPRESSION: Slight worsening from prior.
--- NOTE | 2016-07-19 19:03 | DISCHARGE SUMMARY ---
ADMISSION DATE: 07/17/2016 DISCHARGE DATE: 07/20/2016 PAST MEDICAL HISTORY: 1. Severe coronary artery disease. 2. Severe carotid artery disease. 3. Severe COPD requiring home O2. 4. Chronic pain syndrome. OTHER PAST MEDICAL HISTORY: 1. Recent CVA left-sided hemiparesis. 2. Hypertension. 3. Chronic pain syndrome. 4. Nicotine dependence. 5. Questionable history of polysubstance abuse in the past. 6. Paroxysmal atrial fibrillation. PAST SURGICAL HISTORY: He has had a carotid endarterectomy, recent cervical spine fusion, coronary stent placement, cataract removal with an IOL insertion bilaterally. He presented after falling apparently slipped on urine on the floor and suffered a left intertrochanteric hip fracture. Admitted and put in Ford's traction. We stopped his Eliquis and he had surgical repair today per Dr. Queen. He tolerated the procedure well. I anticipate he will get to go to rehab tomorrow. He has had a history of pain medication over use and abuse in the past. He has had some episodes of confusion and some admissions for respiratory compromise as well in the past. Daughter is suspicious that he is taking more medications that he is supposed to. We will plan on letting him go tomorrow to rehab. DISCHARGE MEDICATIONS: I am going to try and keep the same as what he has here. Eliquis 5 mg b.i.d., aspirin 81 mg a day. Lipitor 40 mg a day. Celexa 40 mg a day. Diltiazem CD 180 mg at bedtime. Colace 200 mg at bedtime. Ferrous sulfate 325 mg daily, Lamictal 50 mg b.i.d., Prinivil 5 mg daily. Milk of Magnesia 30 mL p.r.n. and NicoDerm patch 21 mg daily, Prilosec 40 mg a day. OxyContin 30 mg p.o. q.12, Oxy IR 5-10 q.4 p.r.n., and Spiriva 1 puff daily.
[2016-07-19] MEDS: CARDIZEM CD PO SCH (20:32)
[2016-07-19] MEDS: COLACE PO SCH (20:32)
[2016-07-19] MEDS: LIPITOR PO SCH (20:33)
[2016-07-20] MEDS: OXY IR PO PRN ×4 (00:11→17:08)
[2016-07-20 05:29] LABS: MANUAL DIFF NEEDED? NO
[2016-07-20 05:44] LABS: BASO% 0.1 % (0.0-0.8); EOS# 0.77 X1000 (0.0-0.7); EOS% 11.3 % (0.0-10.0); HEMATOCRIT 27.6 % (42.0-52.0); HEMOGLOBIN 8.6 g/dL (14.0-18.0); LYMPH# 1.06 X1000 (1.2-3.4); LYMPH% 15.5 % (20.5-51.1); MCH 25.2 PG (27-31); MCHC 31.2 g/dL (33-37); MCV 80.9 FL (81-99); MONO# 0.73 X1000 (0.11-0.59); MONO% 10.7 % (1.7-9.3); MPV 10.6 FL (7.4-10.4); NEUT% 62.4 % (42.2-75.2); PLT 157 X1000 (130-400); RBC 3.41 XMIL (4.7-6.1)
[2016-07-20 06:02] LABS: AGAP 10; BUN 13 mg/dL (8-22); CALCIUM 9.1 mg/dL (8.8-10.2); CHLORIDE 101 mmol/L (98-107); COSMO 274; POTASSIUM 4.3 mmol/L (3.5-5.1); SODIUM 137 mmol/L (136-145); TCO2 26 mmol/L (25-35)
[2016-07-20] MEDS: OXYCONTIN PO SCH (06:51)
[2016-07-20] MEDS: PRILOSEC PO SCH (06:52)
[2016-07-20] MEDS: TYLENOL PO SCH ×2 (06:52→16:02)
--- NOTE | 2016-07-20 07:35 | PROGRESS NOTE ---
DATE: 07/20/2016 SUBJECTIVE: Mr. Del Angel is lying in bed this morning. Pain seems fairly well controlled. OBJECTIVE: Left lower extremity exam: Dressing is clean, dry, and intact. He is still neurovascularly intact in the left extremity. ASSESSMENT: Status post left trochanteric femoral nailing for intertrochanteric fracture. PLAN: Mr. Del Angel can continue to be weight bear as tolerated on the left lower extremity. Business Services Coordinator is looking at discharge options at this point. It looks like they are getting everything set up for [facility] rehab. I would like to see him back in my clinic in about 2 weeks.
[2016-07-20] MEDS: SPIRIVA INH SCH (07:54)
[2016-07-20] MEDS: NICODERM PATCH TD SCH (09:46)
[2016-07-20] MEDS: LAMICTAL PO SCH (09:46)
[2016-07-20] MEDS: ELIQUIS PO SCH (09:47)
[2016-07-20] MEDS: FERROUS SULFATE PO SCH (09:47)
[2016-07-20] MEDS: PERIDEX MT SCH (09:47)
[2016-07-20] MEDS: ASPIRIN PO SCH (09:47)
[2016-07-20] MEDS: CELEXA PO SCH (09:47)
[2016-07-20] MEDS: PRINIVIL PO SCH (09:47)
--- NOTE | 2016-07-20 14:07 | DISCHARGE SUMMARY ---
ADMISSION DATE: 07/17/2016 DISCHARGE DATE: 07/20/2016 HISTORY OF PRESENT ILLNESS: This is a 71-year-old who was admitted who was admitted on 07/17/2016 and discharged on 07/20/2016. He has a known history of: 1. Severe coronary artery disease. 2. Severe peripheral vascular disease with carotid artery disease. 3. Severe chronic obstructive pulmonary disease requiring O2 4. Chronic pain syndrome. PAST MEDICAL HISTORY: 1. Recent cerebrovascular accident with left sided hemiparesis. 2. Hypertension. 3. Chronic pain syndrome. 4. Nicotine dependence. 5. He has had a history of a couple of admissions for polysubstance abuse in the past. 6. Paroxysmal atrial fibrillation. 7. History of chronic atrial fibrillation. PAST SURGICAL HISTORY: Carotid endarterectomy, recent cervical spine fusion, coronary artery stent placement, cataract removal and IOL insertion bilaterally. HOSPITAL COURSE: The patient came in and had suffered a hip fracture. Dr. Queen was consulted for a left intertrochanteric hip fracture. He underwent surgery with femoral nailing and has done well. His respiratory status is good. It was felt he was progressing with physical therapy. It was felt he could go to rehab on 07/20/2016. Respiratory and cardiac status and has done very well. DISCHARGE MEDICATIONS: He is going to take Tylenol as needed. He is back on Eliquis 5 mg b.i.d., aspirin 81 mg a day, Lipitor 40 mg every night at bedtime, Celexa 40 mg daily, Cardizem CD 180 mg every night at bedtime, Colace 200 mg every night at bedtime, ferrous sulfate 325 mg daily, Lamictal 50 mg b.i.d., Prinivil 5 mg daily, milk of magnesia 30 mL daily p.r.n., nicotine patch 21 mg daily, Prilosec 40 mg a day, OxyContin he is on 30 mg p.o. twice a day and OxyIR 5 to 10 mg p.o. every 4 hours, Spiriva 1 puff daily. Continue his O2 at 4 liters.
[2016-07-20] MEDS ORDERED: DULCOLAX PO ONE (16:21)
[2016-07-20 17:36] VITALS: BP 115/47
== END 2016-07-20 18:03 | DRG 481 ==
LOC: EDUNIT# → EDBD → ED 12:13 → 4N 14:15 → DIRADM 07-19 08:24 → 4N 07-19 08:27
PROVIDERS: ATTEND Emergency Medicine
PROC: 0QS736Z Reposition Left Upper Femur with Intramedullary Internal Fixation Device, Percutaneous Approach (ICD-10-PCS; principal; 2016-07-18 12:53)
DX: S72.145A Nondisplaced intertrochanteric fracture of left femur, initial encounter for closed fracture (principal); N17.9 Acute kidney failure, unspecified; J90 Pleural effusion, not elsewhere classified; I27.2 Other secondary pulmonary hypertension; I69.954 Hemiplegia and hemiparesis following unspecified cerebrovascular disease affecting left non-dominant side; Z99.81 Dependence on supplemental oxygen; J44.9 Chronic obstructive pulmonary disease, unspecified; I48.0 Paroxysmal atrial fibrillation; J45.909 Unspecified asthma, uncomplicated; I25.10 Atherosclerotic heart disease of native coronary artery without angina pectoris; I25.2 Old myocardial infarction; I10 Essential (primary) hypertension; D64.9 Anemia, unspecified; N40.0 Benign prostatic hyperplasia without lower urinary tract symptoms; I73.9 Peripheral vascular disease, unspecified; G89.4 Chronic pain syndrome; F41.9 Anxiety disorder, unspecified; F32.9 Major depressive disorder, single episode, unspecified; F17.210 Nicotine dependence, cigarettes, uncomplicated; Z23 Encounter for immunization; Z79.899 Other long term (current) drug therapy; Z79.82 Long term (current) use of aspirin; Z79.02 Long term (current) use of antithrombotics/antiplatelets; Z95.5 Presence of coronary angioplasty implant and graft; Z98.1 Arthrodesis status; W01.0XXA Fall on same level from slipping, tripping and stumbling without subsequent striking against object, initial encounter
CPT/HCPCS: 71010; 76000; 80048; 80053; 81001; 82550; 83735; 83880; 84443; 84484; 85014; 85018; 85025; 85610; 85730; 86850; 86900; 86901; 86920; 87088; 90471; 90715; 93005; 94761; 96372; J0690; J1170; J2370; J2405; J3010; J7030; J7050; J7120; 94640-76; 97001-GP; 97110-GP; 97530-GP

== ENCOUNTER 2018-07-22 18:37 | Inpatient (IN) ==
[2018-07-22] MEDS ORDERED: NS 1,000 ML IV ONE ×2 (19:41→20:52)
[2018-07-22 20:02] LABS: BASO# 0.01 X1000 (0.0-0.2); BASO% 0.1 % (0.0-0.8); EOS# 0.29 X1000 (0.0-0.7); HEMATOCRIT 32.7 % (42.0-52.0); IMM GRAN# 0.14 X1000 (0.0-0.04); LYMPH# 1.72 X1000 (1.2-3.4); MCH 25.1 PG (27-31); MCHC 30.6 g/dL (33-37); MONO# 0.66 X1000 (0.11-0.59); MONO% 4.6 % (1.7-9.3); MPV 10.6 FL (7.4-10.4); NEUT% 80.3 % (42.2-75.2); PLT 232 X1000 (130-400); RBC 3.99 XMIL (4.7-6.1); RDW 17.2 % (11.5-14.5); WBC 14.32 X1000 (4.8-10.8)
--- NOTE | 2018-07-22 20:07 | Diag Imaging Result Doc PS360 ---
EXAM: CHEST-1 VIEW 07/22/2018 HISTORY: weakness TECHNIQUE: AP upright portable at 1948 COMMENT: Compared to 07/17/2018 there has been improvement in the atelectatic and ill-defined opacity in the right lower lobe. No new abnormalities are present. IMPRESSION: Improved pneumonia right lower lobe. Electronically signed by Merrick Conrad 07/22/2018 8:03 PM
[2018-07-22 20:11] LABS: ALLEN TEST YES; BE 4.7 mmoll (-3.0-3.0); BLOOD TYPE ARTERIAL; HCO3-(ACT) 28.4 mmoll (20.0-26.0); METHB 0.9 % (0.0-1.5); O2(CT) 12.9 mL/dL (15.0-23.0); PCO2(98.6) 42 mmHg (35-45); PO2(98.6) 50 mmHg (60-100); SAMPLE BLOOD; SAO2 90.4 % (95.0-100.0); THB 10.7 g/dL (11.5-17.4); pH(98.6) 7.45 (7.35-7.45)
[2018-07-22 20:13] LABS: MODALITY ROOM AIR
--- NOTE | 2018-07-22 20:50 | PROVIDER DOCUMENTATION ---
This chart was entered by Saige Lam Scribe, acting as scribe for Laina Proctor DO. HPI-General Adult - General Chief Complaint: B/P Problems Stated Complaint: low bp Time Seen by Provider: 07/22/18 19:09 Source: patient, EMS Allergies/Adverse Reactions: Patient Allergies Allergy/AdvReac Type Severity Reaction Status Date / Time levofloxacin [From Levaquin] Allergy Intermediate RASH Verified 07/23/18 00:10 haloperidol [From Haldol] Allergy Unknown Unknown Verified 07/23/18 00:10 morphine AdvReac Severe altered Verified 07/23/18 00:10 mental status Home Medications: Home Medication List Medication Instructions Recorded Confirmed Last Taken Type Omeprazole 40 mg PO DAILY 01/24/18 07/23/18 Unknown History ATORVAstatin [Lipitor] 40 mg PO QHS #90 tab 03/03/18 07/23/18 Unknown Rx Tamsulosin [Flomax] 0.4 mg PO DAILY #90 cap 03/03/18 07/23/18 Unknown Rx Trazodone [Desyrel] 50 mg PO QHS #90 tab 03/03/18 07/23/18 Unknown Rx Amiodarone [Cordarone] 200 mg PO DAILY tablet 03/06/18 07/23/18 Unknown Rx Citalopram Hydrobromide 40 mg PO DAILY #10 tab 03/06/18 07/23/18 Unknown Rx [Citalopram HBr] Metoprolol Succinate [Toprol Xl] 25 mg PO DAILY #30 tab.er.24h 03/06/18 Unknown Rx Folic Acid 1 mg PO DAILY 05/31/18 07/23/18 Unknown History Furosemide [Lasix] 40 mg PO DAILY 05/31/18 07/23/18 Unknown History Docusate Sodium [Colace] 100 mg PO BID PRN PRN 07/09/18 07/23/18 Unknown History Polyethylene Glycol 3350 [Miralax] 17 gm PO PRN PRN 07/09/18 07/23/18 Unknown History Albuterol 2.5MG/Ipratrop 0.5MG 3 ml INH RTQ6H neb 07/18/18 07/23/18 Unknown Rx [Duoneb (A & A)] Apixaban [Eliquis] 5 mg PO BID tablet 07/18/18 07/23/18 Unknown Rx Aspirin 81 mg PO DAILY chewtab 07/18/18 07/23/18 Unknown Rx Diltiazem L.a. [Cardizem LA] 360 mg PO DAILY #0 07/18/18 07/23/18 Unknown Rx Nicotine Patch [Nicoderm Patch] 21 mg TD DAILY patch.td24 07/18/18 07/23/18 Unknown Rx Hydrocodone/Acetaminophen [Marcellus 1 ea PO Q6H PRN #45 tab 07/19/18 07/23/18 Unknown Rx 7.5-325 Tablet] Albuterol Sulfate [Proventil Hfa] 2 puff IH BID 07/22/18 07/23/18 Unknown History Capsaicin 0.075% Cream [Zostrix] 1 applicatn TOP 4XDAY PRN PRN 07/22/18 Unknown History - History of Present Illness -Gen Adult Nature of Presenting Problems: Pt is 73/m presenting to ED via EMS. He comes from nursing facility and is here because of low BP. was reported to be 55/28. Pt was admitted to ICU here a week or so ago for PNA and heart failure. he sts that he is weak and told the nurse that he had a headache. pt is A&0x3. Location of Pain/Injury: reports: head (sts has headache) Pain Radiation: reports: no radiation Quality of Pain: reports: aching Severity: reports: mild Onset/Duration: reports: just prior to arrival Timing: reports: still present Context/Activities at Onset: reports: none Modifying Factors: improves with: nothing Associated Symptoms: reports: weakness. denies: arm pain, back/neck pain, chest pain, diaphoresis, diarrhea, dizziness, nausea, vomiting Similar Symptoms Previously?: No Recently seen or treated by another doctor?: Yes (was in ICU a week prior) Review of Systems - Adult - REVIEW OF SYSTEMS - ADULT Constitutional: denies: chills, fever Eyes: reports: no symptoms reported Ears, Nose, Mouth & Throat: reports: no symptoms reported Cardiovascular: reports: no symptoms reported. denies: chest pain, edema Respiratory: reports: no symptoms reported. denies: shortness of breath, wheezing Gastrointestinal: reports: no symptoms reported. denies: diarrhea, nausea, vomiting Genitourinary: reports: no symptoms reported Musculoskeletal: reports: no symptoms reported. denies: muscle aches, neck pain Integumentary: reports: no symptoms reported Neurological: reports: headache/migraines (current h/a). denies: dizziness/ vertigo Psychiatric: reports: no symptoms reported. denies: anxiety Endocrine: reports: no symptoms reported Hematologic/Lymphatic: reports: no symptoms reported Past History - Adult - PAST MEDICAL HISTORY-ADULT Review of Records: reports: Old Records Reviewed, Nursing Assessment Review, Medications Reviewed, Social history reviewed & non-contributory. Major Childhood Illnesses: reports: denies history Cardiovascular: reports: A-Fib, CAD, HTN, hyperlipidemia Respiratory: reports: COPD Gastrointestinal: reports: GERD Obstetrical/Gynecological: reports: denies history Genitourinary: reports: denies history Musculoskeletal: reports: chronic pain Neurological: reports: CVA (residual left sided weakness), stroke deficits ( left sided) Endocrine/Immune: reports: denies history Other Conditions: reports: denies history - PRIOR SURGERIES/PROCEDURES Surgical/Procedure History: reports: recent surgery (L ankle), cardiac stent, orthopedic (extremity) (L hip, L ankle), back/neck, other (prostate, eye, cervical fusion) - PRIOR HOSPITALIZATIONS Prior Hospitalizations: reports: none - IMMUNIZATION STATUS Childhood Immunizations: See Nurse Assessment Flu Vaccine: See Nurse Assessment - FAMILY HISTORY Family History: reviewed, not pertinent - SOCIAL HISTORY Smoking: greater than 1 pack/day Provider spent 3-5 mins advising pt. on dangers of tobacco.: Discussed manners to quit use, and f/u contacts for add'l counseling. Substance Use: none/never Alcohol Use Frequency: never Living Situation: care facility Physical Exam-General - PHYSICAL EXAM-ADULT Initial Vital Signs Reviewed: Yes - CONSTITUTIONAL General Appearance: appears well, alert, no apparent distress, thin, other (Pt is emaciated) - EYES Eyes: PERRL/EOMI - HEAD, EARS, NOSE, MOUTH & THROAT HENMT: normocephalic/atraumatic. negative: moist mucous membranes (dry) - NECK Neck: non-tender, full range of motion, supple, normal inspection - RESPIRATORY Respiratory: chest non-tender, lungs clear, normal breath sounds, no pleuratic chest pain, no respiratory distress, no accessory muscle use. negative: respiratory distress, wheezing - CARDIOVASCULAR Cardiovascular: normal peripheral pulses, regular rate, rhythm, no edema, no gallop, no JVD, no murmur - GASTROINTESTINAL (ABDOMEN) Abdominal Exam: normal bowel sounds, non tender, soft, no organomegaly, no pulsatile mass - LYMPHATIC Lymphatic: no adenopathy - MUSCULOSKELETAL Back Exam: normal inspection, no CVA tenderness, no vertebral tenderness Extremity: normal range of motion, non-tender, normal gait, normal inspection. negative: no pedal edema - SKIN Integumentary: normal color, normal turgor, warm/dry - NEUROLOGIC Neurologic: grossly normal. negative: facial droop, focal weakness - PSYCHIATRIC Psych/Mental Status: normal mood/affect, normal thought content, normal thought process, oriented x 3 Progress - PLAN OF CARE/RESULTS Progress/Plan/Lab Results: Vital Signs - 8 hr 07/22/18 19:05 Temperature 97.5 F L Pulse Rate 43 L Respiratory Rate 20 Blood Pressure 55/28 O2 Sat by Pulse Oximetry 95 Orders Category Date Time Status CHEST-1 VIEW [RAD] Stat Exams 07/22/18 19:39 Taken BLOOD CULTURE [BLDCUL] Stat Lab 07/22/18 19:39 Uncollected CBC WITH ELECTRONIC DIFF [HEME] Stat Lab 07/22/18 19:51 Ordered COMPREHENSIVE METABOLIC PANEL [CHEM] Stat Lab 07/22/18 19:51 Ordered LACTATE, PLASMA [CHEM] Stat Lab 07/22/18 19:51 Ordered MAGNESIUM [CHEM] Stat Lab 07/22/18 19:39 Uncollected PRO B-NATRIURETIC PEPTIDE Stat Lab 07/22/18 19:51 Ordered TROPONIN T Stat Lab 07/22/18 19:51 Ordered UA NIMS W/REFLEX CULT [URINALYSIS] Stat Lab 07/22/18 19:39 Uncollected 0.9% Sodium Chloride Inj [Ns] 1,000 ml Med 07/22/18 19:41 Active IV 999 mls/hr Pt's BP improved with fluid resus. He remained alert. He was admitted to the hospitalist service for further eval and treatment. Result Diagrams: 07/22/18 19:30 07/22/18 19:30 - XRAY 1 XRAY: Bilateral XRAY Study: Chest Impression: Abnormal Comparison with other Films: changes noted (COMMENT: Compared to 07/17/2018 there has been improvement in the atelectatic and ill-defined opacity in the right lower lobe. No new abnormalities are present. IMPRESSION: Improved pneumonia right lower lobe. Electronically signed by Merrick Conrad 07/22/2018 8:03 PM [id number]) Departure - Departure Date of Disposition Decision: 07/22/18 Time of Disposition Decision: 21:32 DIAGNOSIS: Dehydration Acute renal failure Qualifiers: Acute renal failure type: unspecified Qualified Code(s): N17.9 - Acute kidney failure, unspecified Disposition: ADMITTED INPATIENT 09 Certified Medical Emergency: Emergent Condition: Fair - Critical Care Note This patient required my direct & personal management of CC.: Yes Total Time (mins): 32 Critical Care Statement: This patient required my direct personal management to treat or rule out processes, the absence of which, could potentiallly result in sudden, clinically significant life or limb threatening deterioration. Attestation - Physician/ NANCY Attestation Patient care was provided by Advanced Practice Provider:: No The physician spent face to face time with patient:: Yes Advanced Practice Provider documentation review:: Supervising physician onsite and consulted in the evaluation and care of this patient. The physician did have a face to face encounter with the patient. This chart was documented by the indicated scribe, (Saige Lam, Anna) and accurately reflects the services I performed and decisions made by me, Laina Proctor, , as attested by the provider's signature.
[2018-07-22 20:52] LABS: ALB/GLOB RATIO 1.3; ALBUMIN 3.1 g/dL (3.5-5.0); CALCIUM 8.4 mg/dL (8.8-10.2); POTASSIUM 5.4 mmol/L (3.5-5.1); TOTAL BILIRUBIN 0.34 mg/dL (0.20-1.00); TOTAL PROTEIN 5.4 g/dL (6.3-8.3)
[2018-07-22] MEDS ORDERED: TYLENOL PO ONE (20:59)
[2018-07-22] MEDS ORDERED: LEVOPHED 8 MG in D5 1/2 NS 250 ML IV SCH (21:30)
[2018-07-22] MEDS ORDERED: ALBUTEROL 0.5% INH CONC FOR HYPERKALEMIA INH ONE (21:31)
[2018-07-22] MEDS ORDERED: SODIUM BICARBONATE 8.4% IV PUSH ONE (21:32)
[2018-07-22] MEDS ORDERED: D50W SYRINGE IV ONE (21:32)
[2018-07-22] MEDS ORDERED: CALCIUM GLUCONATE 1 GM in NS 50 ML IV ONE (21:32)
[2018-07-22] MEDS ORDERED: HUMULIN R IV ONE (21:33)
[2018-07-22] MEDS ORDERED: DOPAMINE 400 MG/D5W 400 MG/500 ML IV.SOLN IV SCH (23:00)
[2018-07-22] MEDS ORDERED: COLACE PO PRN (23:42)
[2018-07-22] MEDS ORDERED: ZOFRAN IV PRN (23:42)
[2018-07-22] MEDS ORDERED: ZOSTRIX TOP PRN (23:42)
[2018-07-22] MEDS: DUONEB (A & A) INH SCH (23:42)
[2018-07-22] MEDS ORDERED: MIRALAX PO PRN (23:42)
[2018-07-23] MEDS ORDERED: ZOSTRIX TOP PRN (00:10)
[2018-07-23] MEDS: MAXIPIME 0.5 GM in NS 50 ML IV SCH ×3 (00:15→23:42)
[2018-07-23] MEDS ORDERED: DOPAMINE 800 MG/D5W 800 MG/500 ML IV.SOLN ONE (00:40)
[2018-07-23] MEDS: NORCO-7.5 PO PRN ×3 (01:40→14:41)
[2018-07-23] MEDS: NS 1,000 ML IV SCH ×3 (02:00→11:45)
[2018-07-23] MEDS: DUONEB (A & A) INH SCH ×4 (04:00→20:45)
[2018-07-23 04:39] LABS: URINE SOURCE CATH
[2018-07-23 04:48] LABS: BILIRUBIN URINE NEGATIVE (NEGATIVE); BLOOD URINE NEGATIVE (NEGATIVE); COLOR YELLOW; GLUCOSE URINE NEGATIVE (NEGATIVE); KETONE URINE NEGATIVE (NEGATIVE); LEUKOCYTES URINE NEGATIVE (NEGATIVE); NITRITE URINE NEGATIVE (NEGATIVE); PH URINE 6.5; PROTEIN URINE TRACE mg/dL (NEGATIVE); SP GRAVITY URINE 1.013; TURBIDITY URINE CLEAR (CLEAR); UROBILINOGEN URINE NORMAL (NORMAL)
[2018-07-23 04:49] LABS: UR EPITHELIAL CELLS <10 /HPF (<10); URINE BACTERIA NEGATIVE /HPF; URINE RBC <10 /HPF (<10); URINE WBC <10 /HPF (<10)
--- NOTE | 2018-07-23 04:55 | HISTORY AND PHYSICAL ---
PRIMARY CARE PROVIDER: Resident physician at [facility]. CHIEF COMPLAINT: Low blood pressure. HISTORY OF PRESENT ILLNESS: Mr. Del Angel is a 73-year-old male very well known to our service. He was discharged around 3 days ago. He was treated for pseudomonal pneumonia and discharged to [facility] where he now resides. Apparently, today he started having low blood pressure per the staff at the facility. It was reported as being 55/28. On arrival here, his blood pressure was noted to be 55/28. He was started on fluid resuscitation. His laboratory data came back and showed an elevated creatinine of 3.0, a BUN of 58. He was also bradycardic with a heart rate in the 40s. The patient was continuing outpatient treatment for pneumonia. He will be put in the ICU for close monitoring and started on IV Maxipime while blood cultures are pending. PAST MEDICAL HISTORY: 1. Coronary artery disease. 2. COPD with home O2. 3. Opioid dependence. 4. Hypertension. 5. Paroxysmal atrial fibrillation. 6. Prior CVA with residual left-sided weakness. 7. Nicotine dependence. 8. Chronic bilateral lobe pneumonia. PREVIOUS SURGICAL HISTORY: 1. Carotid endarterectomy. 2. C-spine fusion. 3. Coronary stent placement. 4. Cataract surgery. 5. Bilateral hip repair. SOCIAL HISTORY: Lives at [facility]. Smokes less than a pack a day. He has been a pack a day smoker for multiple years. Denies alcohol or illicit drug use or abuse. He is opioid dependent. FAMILY HISTORY: Positive for Alzheimer in his mother. Denies any diabetes, heart disease or cancer in family members. ALLERGIES: Morphine and Levaquin. HOME MEDICATIONS: A list of home medications has not been reconciled. An order was placed for Nursing to reconcile home medications with [facility]. These will be restarted when appropriate. REVIEW OF SYSTEMS: Patient is positive for headache and left hip pain. Denies any other symptoms. A 14-point review of systems was conducted. All other systems reviewed and negative. Other pertinent positives were listed above in the HPI. PHYSICAL EXAMINATION: VITAL SIGNS: Temperature 97.5, pulse 46, blood pressure 103/42, oxygen saturation 99% on 2 L nasal cannula. GENERAL: A 73-year-old male lying in the ER stretcher, is alert and oriented times 3, answers all questions appropriately, is in no acute distress. HEENT: Head is atraumatic, normocephalic. Pupils equal, round, reactive to light. Extraocular eye movement intact. Sclerae are anicteric. Conjunctiva is pink. Oral mucosa is dry. NECK: Supple. No JVD. No thyromegaly. Trachea is midline. No cervical lymphadenopathy. CARDIAC: S1, S2 appreciated. Bradycardic. No murmurs, gallops, or rubs. LUNGS: Decreased bilateral lung gallego. Poor inspiratory effort. No rhonchi, wheezes, rales. Symmetric rise and fall with respirations. ABDOMEN: Soft, nondistended, nontender. Bowel sounds present all 4 quadrants, normoactive. No pulsatile mass. No organomegaly. EXTREMITIES: No clubbing, cyanosis, or edema. One-plus pedal pulses bilaterally. GENITOURINARY: No bladder distention. Patient voids. Otherwise deferred. NEUROLOGICAL: Alert and oriented times 3. Cranial nerves II through XII appear to be grossly intact. Left side does seem to be somewhat weaker than the right side, 3/5 strength with 5/5 strength on the right. DIAGNOSTIC DATA: Chest x-ray shows improved right lower lobe pneumonia. LABORATORY DATA: WBC 14.32. Hemoglobin 10. Hematocrit 32.7. Platelet count 232. ABG: pH 7.45, pCO2 of 42, pO2 of 50, bicarbonate 28.4 on room air. Sodium 134. Potassium 5.4. Chloride 93. Carbon dioxide 28. BUN 58. Creatinine 3. Glucose 164. ASSESSMENT AND PLAN: 1. Hypotension. Patient is severely fluid volume depleted. We will give 2 L of normal saline in the emergency room, continue normal saline, place patient on the ICU with dopamine if needed for hypotension while fluid repletion is underway. 2. Fluid volume depletion, see #1. 3. Continued right lower lobe pneumonia which is improving. We will continue patient on IV Maxipime renally dosed as he has acute kidney injury at this time. 4. Acute kidney injury secondary to #1. Continue to monitor. Recheck laboratory data. 5. Hyperkalemia. This was treated in the emergency room. It was mildly elevated at 5.4. We will continue to monitor. 6. Bradycardia. We will give an hour-long albuterol treatment as well as start dopamine if needed. We will hold patient's metoprolol, Cardizem and amiodarone at this time. This can be restarted when appropriate. 7. Hypoxia. Oxygen per protocol. Further recommendations per patient clinical course. Dictated by CHIKA Gottlieb for Marquis Raygoza MD cc: CHIKA Gottlieb MD [facility] resident physician I performed an independent exam and assessment with WAREHOUSE DISTRIBUTION MANAGER at bedside. Recommend to continue with Maxipime for the next 4 -6 days to complete the projected 14 course for the treatment of Psuedomonal PNA. Pt was clinically dehydrated as evidenced by decreased turgor, xerostomia and hypotension with tachycardia. Aggressive IVF initiated and if still hypotensive and bradycardic, I have recommended Dopamine to address both defects until IVF has time to rectify this by correcting poor renal function from dehydration,but this has cause poor clearance of BB, CCB and Amiodarone from patient's system. MTDD
--- NOTE | 2018-07-23 07:00 | EKG Report ---
Test Performed on : 07/23/2018 06:41:59 AM Test Reason : chest pain Blood Pressure : / mmHG Vent. Rate : 063 BPM Atrial Rate : 063 BPM P-R Int : 152 ms QRS Dur : 120 ms QT Int : 458 ms P-R-T Axes : 066 063 243 degrees QTc Int : 468 ms Normal sinus rhythm. Nonspecific intraventricular conduction delay T wave abnormality, consider inferolateral ischemia Abnormal ECG When compared with ECG of 22-JUL-2018 19:12, (Unconfirmed) Vent. rate has increased BY 21 BPM QRS duration has increased T wave inversion now evident in Inferior leads Confirmed by Bambi VENCES, Macario Dan ([id number]) on 07/23/2018 10:10:09 PM
[2018-07-23 07:28] LABS: EOS# 0.01 X1000 (0.0-0.7); EOS% 0.1 % (0.0-10.0); HEMATOCRIT 30.9 % (42.0-52.0); HEMOGLOBIN 9.4 g/dL (14.0-18.0); IMM GRAN% 0.8 % (0.0-0.5); LYMPH# 0.92 X1000 (1.2-3.4); LYMPH% 7.5 % (20.5-51.1); MCH 25.1 PG (27-31); MCHC 30.4 g/dL (33-37); MCV 82.6 FL (81-99); MONO# 0.51 X1000 (0.11-0.59); MONO% 4.2 % (1.7-9.3); MPV 10.5 FL (7.4-10.4); NEUT# 10.72 X1000 (1.4-6.5); NEUT% 87.4 % (42.2-75.2); PLT 181 X1000 (130-400); RBC 3.74 XMIL (4.7-6.1); RDW 17.1 % (11.5-14.5); WBC 12.26 X1000 (4.8-10.8)
[2018-07-23 07:54] LABS: BANDS 3 % (0-1); LYMPHS 8 % (21-51); SEGS 88 % (42-75)
[2018-07-23 08:00] LABS: CALCIUM 8.3 mg/dL (8.8-10.2); CREATININE 2.2 mg/dL (0.7-1.2); POTASSIUM 3.6 mmol/L (3.5-5.1)
[2018-07-23] MEDS: ASPIRIN PO SCH (09:04)
[2018-07-23] MEDS: CORDARONE PO SCH (09:05)
[2018-07-23] MEDS: CELEXA PO SCH (09:05)
[2018-07-23] MEDS: FLOMAX PO SCH (09:06)
[2018-07-23] MEDS: FOLIC ACID PO SCH (09:06)
[2018-07-23] MEDS: ELIQUIS PO SCH ×2 (09:06→21:45)
[2018-07-23] MEDS: NICODERM PATCH TD SCH (09:07)
[2018-07-23] MEDS: PRILOSEC PO SCH (09:07)
--- NOTE | 2018-07-23 10:41 | EKG Report ---
Test Performed on : 07/22/2018 7:12:35 PM Test Reason : ED. NO EKG ORDER FOR MUSE Blood Pressure : / mmHG Vent. Rate : 042 BPM Atrial Rate : 042 BPM P-R Int : 150 ms QRS Dur : 098 ms QT Int : 554 ms P-R-T Axes : 017 065 056 degrees QTc Int : 462 ms Marked sinus bradycardia. Abnormal ECG When compared with ECG of 11-JUL-2018 18:41, Sinus rhythm. has replaced Atrial fibrillation. Vent. rate has decreased BY 63 BPM Criteria for Septal infarct are no longer present ST no longer depressed in Inferior leads ST no longer depressed in Anterior leads Nonspecific T wave abnormality no longer evident in Inferior leads T wave inversion no longer evident in Anterolateral leads Unconfirmed Result
--- NOTE | 2018-07-23 13:43 | PROGRESS NOTE ---
DATE: 07/23/2018 SUBJECTIVE: Mr. Del Angel was admitted early this morning. He was found unresponsive for a couple of minutes, low blood pressure. A 73-year-old well known to our service. No primary care physician. He was at [facility]. Discharged about 3 days ago, treated for Pseudomonas pneumonia. Just discharged to [facility] where he now resides. He was starting to have low blood pressure according to the facility. On arrival here it was 55/28. Laboratory data showed a creatinine of 3, BUN 58, also had bradycardia with a heart rate in the 40s. We will continue outpatient treatment for pneumonia. So we plan to move him to the ICU. PAST MEDICAL HISTORY: 1. Coronary artery disease. 2. Chronic obstructive pulmonary disease with home O2. 3. Opioid dependence. 4. Hypertension. 5. Paroxysmal atrial fibrillation. 6. Prior CVA with residual left-sided weakness. 7. Nicotine dependence. 8. Chronic bilateral lower pneumonia. SURGICAL HISTORY: Carotid enterectomy. section fusion. Coronary stent placement. Cataract surgery. Bilateral hip repair. OBJECTIVE: General: On exam today, he is awake and alert. Vitals: Blood pressure was 100/60, temperature 97.2 degrees, pulse 67, respirations 20. Eyes: Pupils are equal. Neck: Nondistended neck veins. Lungs: Clear in all lung gallego with decreased breath sounds both bases, but no trouble moving air. Abdomen: Soft. Extremities: No pedal edema. INPUT AND OUTPUT: Urine output from last night was over 2 L. IMAGING: Chest x-ray: Improved pneumonia in the right lower lobe. ASSESSMENT AND PLAN: 1. Syncopal episode. Hypotension. Severe volume depletion. So I will give him some normal saline. Blood pressure seems to have come up well. 2. Treating for a right lower lobe pneumonia which is improving, radiographically and clinically. 3. Acute kidney injury secondary to volume depletion. Continue fluids. 4. Hyperkalemia was treated. Mildly elevated at 5.4. Continue to monitor. 5. Bradycardia. We will see how we do with volume. At present time heart rate seems to be appropriate and remains in sinus rhythm. 6. Review of orders: The patient is on Desyrel 50 mg at bedtime, Lipitor 40 mg at bedtime, Cordarone 200 mg a day, Eliquis 5 mg b.i.d., aspirin 81 mg a day, Celexa 40 mg a day. He originally was on some dopamine drip for his pressure. Folic acid 1 mg a day. He got a dose of cefepime 0.5 mg, to get that q.12. He is on metoprolol 25 mg daily, nicotine patch, getting normal saline at 100 mL an hour, Flomax 0.4 mg a day, calcium gluconate 1 g and MiraLAX 17 g daily p.r.n. cc: Riky Solitario MD
[2018-07-23] MEDS: LIPITOR PO SCH (21:00)
[2018-07-23] MEDS: TYLENOL PO PRN (21:30)
[2018-07-23] MEDS: DESYREL PO SCH (21:45)
[2018-07-24] MEDS: NORCO-7.5 PO PRN ×3 (01:17→18:50)
[2018-07-24 01:36] LABS: O2HB 85.7 % (95.0-99.0)
[2018-07-24] MEDS ORDERED: DOPAMINE 800 MG/D5W 800 MG/500 ML IV.SOLN ONE (03:04)
[2018-07-24] MEDS: DUONEB (A & A) INH SCH ×4 (03:06→22:30)
[2018-07-24] MEDS ORDERED: DOPAMINE 800 MG/D5W 800 MG/500 ML IV.SOLN IV SCH (04:15)
[2018-07-24] MEDS: NS 1,000 ML IV SCH ×3 (07:32→18:52)
[2018-07-24] MEDS: FLOMAX PO SCH (08:51)
[2018-07-24] MEDS: TOPROL XL PO SCH (08:51)
[2018-07-24] MEDS: CORDARONE PO SCH (08:51)
[2018-07-24] MEDS: CELEXA PO SCH (08:51)
[2018-07-24] MEDS: PRILOSEC PO SCH (08:51)
[2018-07-24] MEDS: ASPIRIN PO SCH (08:51)
[2018-07-24] MEDS: ELIQUIS PO SCH ×2 (08:51→22:15)
[2018-07-24] MEDS: FOLIC ACID PO SCH (08:51)
[2018-07-24] MEDS: MAXIPIME 0.5 GM in NS 50 ML IV SCH ×2 (08:51→22:15)
[2018-07-24] MEDS ORDERED: CARDIZEM LA PO SCH (09:00)
[2018-07-24] MEDS: NICODERM PATCH TD SCH (09:00)
--- NOTE | 2018-07-24 11:24 | PROGRESS NOTE ---
DATE: 07/24/2018 SUBJECTIVE: This morning, Mr. Del Angel refers to be doing a whole lot better. He was actually requesting if he could be sent home. Mr. Del Angel got admitted on the , mainly because of low blood pressure and syncope. He was discharged from the hospital on the and then came back 2 days later. OBJECTIVE: Vital signs: This morning, blood pressure is 108/41, pulse is 60, respiration is 20, temperature is 98.2. General: Mr. Del Angel is a 73-year-old, gentleman. He is in bed. He is not in any cardiopulmonary distress. HEENT: Mucosa is slightly dry. Anicteric. Acyanotic. Neck: Supple. Chest: There is good air entry bilateral. Questionable crackles in the right posterior lung field. No rhonchi. No accessory muscle use. Cardiovascular: Regular rate and rhythm. There are no murmurs, no rubs, no gallops. Abdomen: Soft, nontender. Bowel sounds were present. Extremities: No pedal edema. Distal pulses present. 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 LABORATORY DATA: There is no CBC this morning. No chemistry either. A chest x-ray which was done, did show improved pneumonia in the right lower lobe. An EKG which was done on the showed significant sinus bradycardia. A repeat EKG on the did show significant improvement in the rate. It had gone up to about 63. Normal sinus rhythm. There were no T-waves or ST-segment abnormalities. CURRENT MEDICATIONS: Have been reviewed. He has been started on cefepime. ASSESSMENT AND PLAN: 1. Syncopal episode. The patient came in remarkably hypotensive and bradycardic. I think this is related to medications, on top of possibly intravascular depletion. The patient's creatinine was remarkably abnormal just about 3 days after leaving the hospital and after adequate hydration, it seems like it is on downward trend. So I think patient was volume depleted and then on top of that he has been taking multiple rate-controlling medications including amiodarone, metoprolol and diltiazem. He was started on dopamine drip, which his parameters are now stabilized, so we are going to gradually discontinue these. 2. Acute kidney injury, likely secondary to intravascular depletion. We will continue with gentle hydration. 3. Generalized weakness secondary to hypotension from medication side effects. 4. Questionable sick sinus syndrome. Patient is known to have atrial fibrillation. He was remarkably bradycardic on admission. This is really not the first time Mr. Del Angel has syncopized and the thought process is that he is either neurally mediated or cardiac related. I think at some point, he probably needs to be evaluated for pacemaker. We will get Cardiology also to see him. 5. History of coronary artery disease, known by Cardiology. We will continue with his home medications. 6. Right lower lobe pneumonia. Subsequent x-ray actually shows improvement. I do not think this was the cause for him to come to the hospital. cc: Bi Treadwell MD
[2018-07-24] MEDS ORDERED: CALMOSEPTINE OINTMENT TOP PRN (18:21)
[2018-07-24] MEDS: LIPITOR PO SCH (22:15)
[2018-07-24] MEDS: DESYREL PO SCH (22:15)
[2018-07-24] MEDS: TYLENOL PO PRN (22:15)
[2018-07-25] MEDS: NS 1,000 ML IV SCH ×5 (00:32→22:39)
[2018-07-25] MEDS: NORCO-7.5 PO PRN ×4 (00:33→20:35)
[2018-07-25] MEDS: DUONEB (A & A) INH SCH ×4 (02:50→21:10)
[2018-07-25 07:30] LABS: EOS# 0.27 X1000 (0.0-0.7); EOS% 4.9 % (0.0-10.0); HEMOGLOBIN 8.9 g/dL (14.0-18.0); IMM GRAN# 0.03 X1000 (0.0-0.04); IMM GRAN% 0.5 % (0.0-0.5); LYMPH# 0.95 X1000 (1.2-3.4); LYMPH% 17.1 % (20.5-51.1); MCH 25.6 PG (27-31); MCHC 30.7 g/dL (33-37); MCV 83.3 FL (81-99); MONO% 10.8 % (1.7-9.3); MPV 10.6 FL (7.4-10.4); NEUT# 3.69 X1000 (1.4-6.5); NEUT% 66.7 % (42.2-75.2); PLT 168 X1000 (130-400); RBC 3.48 XMIL (4.7-6.1); RDW 17.5 % (11.5-14.5); WBC 5.54 X1000 (4.8-10.8)
[2018-07-25 07:44] LABS: AGAP 6; ALB/GLOB RATIO 1.3; ALBUMIN 2.8 g/dL (3.5-5.0); ALKALINE PHOSPHATASE 228 U/L (32-122); BUN 21 mg/dL (8-22); CALCIUM 8.6 mg/dL (8.8-10.2); CHLORIDE 108 mmol/L (98-107); COSMO 283; CREATININE 0.8 mg/dL (0.7-1.2); ESTIMATED GFR > 60; GLUCOSE 75 mg/dL (70-104); GOT 45 U/L (10-34); GPT 39 U/L (10-44); POTASSIUM 4.6 mmol/L (3.5-5.1); SODIUM 141 mmol/L (136-145); TCO2 27 mmol/L (25-35); TOTAL BILIRUBIN 0.39 mg/dL (0.20-1.00)
[2018-07-25] MEDS: PRILOSEC PO SCH (09:37)
[2018-07-25] MEDS: FLOMAX PO SCH (09:37)
[2018-07-25] MEDS: CORDARONE PO SCH (09:37)
[2018-07-25] MEDS: ASPIRIN PO SCH (09:37)
[2018-07-25] MEDS: FOLIC ACID PO SCH (09:37)
[2018-07-25] MEDS: CELEXA PO SCH (09:37)
[2018-07-25] MEDS: TOPROL XL PO SCH (09:38)
[2018-07-25] MEDS: ELIQUIS PO SCH ×2 (09:38→20:36)
[2018-07-25] MEDS: NICODERM PATCH TD SCH (09:38)
[2018-07-25] MEDS: CARDIZEM LA PO SCH (09:42)
[2018-07-25] MEDS: MAXIPIME 0.5 GM in NS 50 ML IV SCH ×3 (09:43→20:35)
--- NOTE | 2018-07-25 18:15 | PROGRESS NOTE ---
DATE: 07/25/2018 SUBJECTIVE: This morning, Mr. Del Angel refers to be doing a whole lot better. He was actually sitting up in a chair at the time of the encounter. OBJECTIVE: Vital signs: Blood pressure 146/50, pulse 56, respirations 18, temperature 98.6 degrees. The patient is saturating 99% on room air. General: Mr. Del Angel is a 73-year-old gentleman. He was sitting up in the chair. He was not in any distress. HEENT: Mucosa is pink and moist. Anicteric. Acyanotic. Neck: Supple. Chest: Good air entry bilaterally. There are a few distant crackles posteriorly. No rhonchi. No accessory muscle use. Cardiovascular: Regular rate and rhythm. No murmurs, no rubs, no gallops. Abdomen: Soft, nontender. Bowel sounds present. Extremities: No pedal edema. Distal pulses present. Central nervous system: The patient is awake, alert, and oriented. There is no focal neurological deficit. LABORATORY DATA: WBC 5.54, hemoglobin 8.9, platelet count 168,000. Chemistry is also reviewed. Creatinine has actually normalized to 0.8. Troponin has also normalized to 0.052. ASSESSMENT: 1. Syncopal episode which was associated with hypotension and bradycardia. We think this is medication-related on top of intravascular depletion causing neurally mediated syncope. The patient's hemodynamics have now stabilized. He has not had any more passing out. 2. Acute kidney injury secondary to intravascular depletion. Creatinine is normalized. 3. Generalized weakness secondary to hypotension from medication side effects, improved. 4. History of atrial fibrillation. The patient is now bradycardic. Cardizem has been reduced to 120 and we will continue with his amiodarone. I think at some point, the patient will need to be evaluated for a possible sick sinus syndrome. We will leave that for Cardiology. 5. History of coronary artery disease. The patient follows up with Dr. Wright. 6. Right lower lobe pneumonia. Will continue with the current antibiotic coverage. The patient is on day 2 of cefepime. cc: Bi Treadwell MD
[2018-07-25] MEDS: LIPITOR PO SCH (20:35)
[2018-07-25] MEDS: DESYREL PO SCH (20:36)
[2018-07-25] MEDS: TYLENOL PO PRN (22:43)
[2018-07-26] MEDS: NORCO-7.5 PO PRN ×4 (02:23→20:20)
[2018-07-26] MEDS: DUONEB (A & A) INH SCH ×4 (03:20→22:30)
[2018-07-26 07:21] LABS: BASO# 0.02 X1000 (0.0-0.2); BASO% 0.4 % (0.0-0.8); EOS# 0.22 X1000 (0.0-0.7); EOS% 4.2 % (0.0-10.0); HEMATOCRIT 29.1 % (42.0-52.0); HEMOGLOBIN 8.8 g/dL (14.0-18.0); IMM GRAN# 0.03 X1000 (0.0-0.04); IMM GRAN% 0.6 % (0.0-0.5); LYMPH# 0.96 X1000 (1.2-3.4); LYMPH% 18.2 % (20.5-51.1); MCH 25.2 PG (27-31); MCHC 30.2 g/dL (33-37); MCV 83.4 FL (81-99); MONO# 0.45 X1000 (0.11-0.59); MONO% 8.5 % (1.7-9.3); MPV 10.3 FL (7.4-10.4); NEUT# 3.59 X1000 (1.4-6.5); NEUT% 68.1 % (42.2-75.2); PLT 164 X1000 (130-400); RBC 3.49 XMIL (4.7-6.1); RDW 17.3 % (11.5-14.5); WBC 5.27 X1000 (4.8-10.8)
[2018-07-26 07:46] LABS: AGAP 7; ALBUMIN 2.7 g/dL (3.5-5.0); BUN 20 mg/dL (8-22); CALCIUM 8.6 mg/dL (8.8-10.2); CHLORIDE 108 mmol/L (98-107); COSMO 283; CREATININE 0.8 mg/dL (0.7-1.2); ESTIMATED GFR > 60; GLUCOSE 77 mg/dL (70-104); PHOSPHORUS 2.9 mg/dL (2.7-4.5); POTASSIUM 4.7 mmol/L (3.5-5.1); SODIUM 141 mmol/L (136-145); TCO2 26 mmol/L (25-35)
[2018-07-26] MEDS: NS 1,000 ML IV SCH ×2 (08:18→10:59)
[2018-07-26] MEDS: MAXIPIME 0.5 GM in NS 50 ML IV SCH ×2 (08:18→22:11)
[2018-07-26] MEDS: CARDIZEM LA PO SCH (08:19)
[2018-07-26] MEDS: TOPROL XL PO SCH (08:19)
[2018-07-26] MEDS: NICODERM PATCH TD SCH (08:19)
[2018-07-26] MEDS: ELIQUIS PO SCH ×2 (08:19→20:40)
[2018-07-26] MEDS: ASPIRIN PO SCH (08:19)
[2018-07-26] MEDS: FOLIC ACID PO SCH (08:19)
[2018-07-26] MEDS: FLOMAX PO SCH (08:19)
[2018-07-26] MEDS: PRILOSEC PO SCH (08:19)
[2018-07-26] MEDS: CELEXA PO SCH (08:19)
[2018-07-26] MEDS: CORDARONE PO SCH (08:20)
[2018-07-26] MEDS: TYLENOL PO PRN ×2 (11:03→16:48)
--- NOTE | 2018-07-26 17:45 | DISCHARGE SUMMARY ---
ADMISSION DATE: 07/23/2018 DISCHARGE DATE: 07/26/2018 DISPOSITION: Back to [facility]. CONSULTATION DURING THIS ADMISSION: None. IMAGING STUDIES OF SIGNIFICANCE: A chest x-ray was done, which showed improved pneumonia in the left lower lobe. ADMISSION DIAGNOSES: 1. Hypotension. 2. Fluid volume depletion. 3. Acute kidney injury. 4. Bradycardia. 5. Hypoxemia. DIAGNOSES AT THE TIME OF DISCHARGE: 1. Syncopal episode associated with hypotension and bradycardia, presumably due to medication on top of intravascular depletion. This got resolved with adequate hydration and changes in medication. 2. Acute kidney injury due to intravascular depletion. Creatinine normalized with adequate intravenous fluids. 3. Generalized weakness. 4. History of atrial fibrillation, currently rate controlled. The patient actually came in bradycardic. Cardizem was reduced to 120 mg per day. 5. History of coronary artery disease. The patient is advised to follow up with Dr. Wright. 6. Right lower lobe pneumonia. The patient was treated in the hospital and discharged on 07/19/2018, was on antibiotic, and came back. Chest x-ray revealed significant improvement and has been on cefepime since. I think he has had enough antibiotics for the Pseudomonas pneumonia. FOLLOWUP: Will be with Dr. 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 PRESENTING COMPLAINT: Low blood pressure. HISTORY OF PRESENT COMPLAINT: Mr. Del Angel is a 73-year-old male who presented to the emergency department from [facility] three days after he got discharged. He came in with a blood pressure of 55/28 and a pulse was also in the low 40s. The patient was on medications and was significantly dehydrated. He was admitted for further medical care. HOSPITAL COURSE: The patient was initially started on adequate IV antibiotics to cover for possible pneumonia. Initially, we thought he was somehow septic, however a chest x-ray actually showed improvement in the pneumonic process that he had before. He was found to be remarkably dehydrated and was adequately hydrated. His creatinine normalized during the course of the hospital stay and he felt a lot stronger. Mr. Del Angel's Cardizem was also reduced from 360 to 120 because of bradycardic episodes. During the hospital course his vitals became completely normalized. No more hypotension. No more bradycardia with the changes in the medications. I was able to talk to the daughter this morning and told her about the diagnosis and the way going forward. I think Mr. Del Angel will need to continue to adequately hydrate himself, whereas on p.r.n. Lasix, I have reduced the dose to only 20 mg to prevent further intravascular depletion. He is going to follow up with Cardiology to rule out any potential causes from the heart of the recurrent syncopal episode that he has been having. He does have atrial fibrillation, which on previous admissions he has been titrated up on his Cardizem. However, this time around he came in significantly bradycardic and we had to scale back. This morning he had minimal swelling on his left arm and we did a Doppler ultrasound to rule out any DVT, which was negative. He is therefore clinically stable to be discharged. He will follow up as mentioned above. All of the discharge instructions have been discussed with him and he voices understanding. Time spent for discharge is 35 minutes. cc: MD Demetrius Iraheta MD
[2018-07-26] MEDS: DESYREL PO SCH (20:39)
[2018-07-26] MEDS: LIPITOR PO SCH (20:40)
[2018-07-27] MEDS: NORCO-7.5 PO PRN ×2 (03:13→08:31)
[2018-07-27] MEDS: DUONEB (A & A) INH SCH ×2 (03:21→11:00)
[2018-07-27] MEDS: ELIQUIS PO SCH (08:31)
[2018-07-27] MEDS: FOLIC ACID PO SCH (08:31)
[2018-07-27] MEDS: CARDIZEM LA PO SCH (08:31)
[2018-07-27] MEDS: TOPROL XL PO SCH (08:31)
[2018-07-27] MEDS: FLOMAX PO SCH (08:31)
[2018-07-27] MEDS: PRILOSEC PO SCH (08:31)
[2018-07-27] MEDS: CORDARONE PO SCH (08:31)
[2018-07-27] MEDS: NICODERM PATCH TD SCH (08:32)
[2018-07-27] MEDS: MAXIPIME 0.5 GM in NS 50 ML IV SCH (08:32)
[2018-07-27] MEDS: CELEXA PO SCH (08:32)
[2018-07-27] MEDS: ASPIRIN PO SCH (08:32)
[2018-07-27 10:13] VITALS: BP 139/61
--- NOTE | 2018-07-27 18:07 | Extremity Venous Study ---
PROCEDURE NAME: Venous U/S Left Arm - 07/26/2018 REQUESTING PHYSICIAN: Dr. Lynn. WINDOW CLERK: Keon. INDICATIONS: 1. Edema left upper extremity. 2. Status post IV in left upper extremity. EQUIPMENT: COZero Vivid E9 ultrasound system 9 L-D transducer. FINDINGS: Images of the left upper extremity venous system were obtained in both sagittal and transverse planes. Doppler was used to evaluate veins for spontaneity, phasicity, respiratory excursion and digital augmentation. RESULTS: Technically difficult study secondary to excessive fluid around soft tissue the upper arm but no obvious superficial or deep venous thrombosis noted. INTERPRETATION: Technically limited study secondary to lots of soft tissue fluid and swelling but no obvious superficial or deep venous thrombosis noted on the left upper extremity. cc: MD Bi Keating MD
== END 2018-07-27 13:00 | DRG 682 ==
LOC: ED 18:37 → SUATTDRO 07-23 01:28 → EDIPHOLD 07-23 01:28 → 3N 07-24 15:01
PROVIDERS: ATTEND Internal Medicine
CPT/HCPCS: 51702; 51798; 71010; 71045; 80048; 80053; 80069; 81001; 82805; 83605; 83735; 83880; 84484; 85025; 87040; 93005; 93971; 94640; 94761; 96361; 96365; 96366; 96367; 96368; 96375; 99285; 99291; A9270; J0610; J0692; J1265; J7030

== ENCOUNTER 2019-10-01 04:52 | Inpatient (IN) ==
[2019-10-01] MEDS ORDERED: DUONEB (A & A) INH ONE (05:44)
[2019-10-01] MEDS ORDERED: SOLU-MEDROL IV ONE (06:09)
--- NOTE | 2019-10-01 06:13 | PROVIDER DOCUMENTATION ---
HPI-Respiratory General - General Chief Complaint: Shortness of Breath Stated Complaint: sob Time Seen by Provider: 10/01/19 06:06 Source: patient, EMS Allergies/Adverse Reactions: Patient Allergies Allergy/AdvReac Type Severity Reaction Status Date / Time levofloxacin [From Levaquin] Allergy Intermediate RASH Verified 07/23/18 00:10 haloperidol [From Haldol] Allergy Unknown Unknown Verified 07/23/18 00:10 morphine AdvReac Severe altered Verified 07/23/18 00:10 mental status Home Medications: Home Medication List Medication Instructions Recorded Confirmed Last Taken Type Omeprazole 40 mg PO DAILY 01/24/18 07/23/18 Unknown History ATORVAstatin [Lipitor] 40 mg PO QHS #90 tab 03/03/18 07/23/18 Unknown Rx Tamsulosin [Flomax] 0.4 mg PO DAILY #90 cap 03/03/18 07/23/18 Unknown Rx Trazodone [Desyrel] 50 mg PO QHS #90 tab 03/03/18 07/23/18 Unknown Rx Amiodarone [Cordarone] 200 mg PO DAILY tablet 03/06/18 07/23/18 Unknown Rx Citalopram Hydrobromide 40 mg PO DAILY #10 tab 03/06/18 07/23/18 Unknown Rx [Citalopram HBr] Metoprolol Succinate [Toprol Xl] 25 mg PO DAILY #30 tab.er.24h 03/06/18 07/23/18 Unknown Rx Folic Acid 1 mg PO DAILY 05/31/18 07/23/18 Unknown History Docusate Sodium [Colace] 100 mg PO BID PRN PRN 07/09/18 07/23/18 Unknown History Polyethylene Glycol 3350 [Miralax] 17 gm PO PRN PRN 07/09/18 07/23/18 Unknown History Albuterol 2.5MG/Ipratrop 0.5MG 3 ml INH RTQ6H neb 07/18/18 07/23/18 Unknown Rx [Duoneb (A & A)] Apixaban [Eliquis] 5 mg PO BID tablet 07/18/18 07/23/18 Unknown Rx Aspirin 81 mg PO DAILY chewtab 07/18/18 07/23/18 Unknown Rx Nicotine Patch [Nicoderm Patch] 21 mg TD DAILY patch.td24 07/18/18 07/23/18 Unknown Rx Hydrocodone/Acetaminophen [Gueydan 1 ea PO Q6H PRN #45 tab 07/19/18 07/23/18 Unknown Rx 7.5-325 Tablet] Albuterol Sulfate [Proventil Hfa] 2 puff IH BID 07/22/18 07/23/18 Unknown History Capsaicin 0.075% Cream [Zostrix] 1 applicatn TOP 4XDAY PRN PRN 07/22/18 07/23/18 Unknown History Diltiazem L.a. [Cardizem LA] 120 mg PO DAILY #120 tab 07/26/18 Unknown Rx Furosemide [Lasix] 20 mg PO DAILY #0 07/26/18 07/23/18 Unknown Rx - History of Present Illness-Resp Nature of Presenting Problem: Patient is a 74 year old white male, group home resident at [facility], with history of dementia and COPD who presents by EMS from [facility] for evaluation of shortness of breath. [facility] reports low oxygen sats but EMS report sats in 90's on nasal canula. Denies chest pain or productive cough. Patient requests something for anxiety. Review of Systems - Adult - REVIEW OF SYSTEMS - ADULT ROS:: limited per condition Constitutional: denies: chills, fever Eyes: reports: no symptoms reported Ears, Nose, Mouth & Throat: reports: no symptoms reported Cardiovascular: reports: no symptoms reported Respiratory: reports: shortness of breath, wheezing Gastrointestinal: denies: abdominal pain, nausea, vomiting Genitourinary: reports: no symptoms reported Musculoskeletal: reports: no symptoms reported Integumentary: denies: rash Neurological: reports: no symptoms reported Psychiatric: reports: anxiety. denies: suicidal thoughts Allergic/Immunologic: reports: no symptoms reported Past History - Adult - PAST MEDICAL HISTORY-ADULT Review of Records: reports: Old Records Reviewed, Nursing Assessment Review, Medications Reviewed, Social history reviewed & non-contributory. Major Childhood Illnesses: reports: denies history Cardiovascular: reports: A-Fib, CAD, HTN, hyperlipidemia Respiratory: reports: COPD Gastrointestinal: reports: GERD Obstetrical/Gynecological: reports: denies history Genitourinary: reports: denies history Musculoskeletal: reports: chronic pain Neurological: reports: CVA (residual left sided weakness), stroke deficits (left sided) Endocrine/Immune: reports: denies history Other Conditions: reports: denies history - PRIOR SURGERIES/PROCEDURES Surgical/Procedure History: reports: recent surgery (L ankle), cardiac stent, orthopedic (extremity) (L hip, L ankle), back/neck, other (prostate, eye, cervical fusion) - PRIOR HOSPITALIZATIONS Prior Hospitalizations: reports: none - IMMUNIZATION STATUS Childhood Immunizations: See Nurse Assessment Flu Vaccine: See Nurse Assessment - FAMILY HISTORY Family History: reviewed, not pertinent Physical Exam-General - PHYSICAL EXAM-ADULT Initial Vital Signs Reviewed: Yes - CONSTITUTIONAL General Appearance: alert, no apparent distress, other (demented) - EYES Eyes: other (clear) - HEAD, EARS, NOSE, MOUTH & THROAT HENMT: normocephalic/atraumatic, moist mucous membranes - NECK Neck: supple - RESPIRATORY Respiratory: no respiratory distress, no accessory muscle use, wheezing (diffuse) - CARDIOVASCULAR Cardiovascular: tachycardia - GASTROINTESTINAL (ABDOMEN) Abdominal Exam: non tender, soft - MUSCULOSKELETAL Back Exam: no CVA tenderness Extremity: non-tender - SKIN Integumentary: normal color, warm/dry - NEUROLOGIC Neurologic: other (nonfocal,uncooperative to exam) - PSYCHIATRIC Psych/Mental Status: other (demented) Progress - PLAN OF CARE/RESULTS Progress/Plan/Lab Results: Vital Signs - 8 hr 10/01/19 05:01 10/01/19 05:50 Temperature 98.7 F Pulse Rate 103 H 96 H Respiratory Rate 20 20 Blood Pressure 222/100 O2 Sat by Pulse Oximetry 95 95 Orders Category Date Time Status NEWS Score >or=5:Order NEWS Bundle S.O. NOW Care 10/01/19 05:03 Active CHEST-PORTABLE [RAD] Stat Exams 10/01/19 06:07 Taken ABG [RESP] Routine Lab 10/01/19 06:07 Ordered BLOOD CULTURE [BLDCUL] Stat Lab 10/01/19 06:07 Uncollected CBC WITH DIFF [HEME] Stat Lab 10/01/19 06:14 Ordered COMPREHENSIVE METABOLIC PANEL [CHEM] Stat Lab 10/01/19 06:14 Ordered D-DIMER [COAG] Stat Lab 10/01/19 06:15 Uncollected LACTATE, PLASMA [CHEM] Stat Lab 10/01/19 06:14 Ordered PRO B-NATRIURETIC PEPTIDE Stat Lab 10/01/19 06:14 Ordered TROPONIN T HIGH SENSITIVITY Stat Lab 10/01/19 06:15 Uncollected Albuterol 2.5MG/Ipratrop 0.5MG [Duoneb (A & A)] Med 10/01/19 05:44 Discontinued 3 ml INH NOW ONE Methylprednisolone Sod Succ [Solu-Medrol] Med 10/01/19 06:09 Discontinued 125 mg IV STAT ONE Aerosol Treatments Routine Oth 10/01/19 05:44 Completed Aerosol Treatments Stat Oth 10/01/19 05:44 Completed Pulse Oximetry Stat Oth 10/01/19 06:07 Active EKG [EKG] Stat Ther 10/01/19 06:13 Ordered Result Diagrams: 10/01/19 05:05 10/01/19 05:05 - REASSESSMENT Reassessment #1 Time Reassessed: 08:16 Status: improving (Seen and examined by me. Case discussed with Dr. Connelly at shift change. Patient has CHF with volume overload and RLL Pneumonia. Will diurese and treat CHF with NTG transdermial, IV lasix and IV enalapril (BP 222/100). Will give Vanc/Zosyn for HCAP pne. Has 2 SIRS criteria, but negative lactate. May be septic, but not severe sepsis or septic shock.) Reassessment Comment: V/Q scan ordered for pos d-dimer as CT is down - EKG 1 Time of EKG reading by physician:: 07:10 EKG Read and Signed by:: Ti Salinas EKG Interpretation (*Must complete 3 of following elements*): Abnormal Rate: 86 Rhythm: NSR Center: normal QRS: LVH CT Interval: normal ST Wave: non-specific ST changes - XRAY 1 XRAY Study: Chest Impression: Abnormal, See EMR Report ( EXAM: CHEST-PORTABLE INDICATION: shortness of breath TECHNIQUE: 2 views COMPARISON: 07/22/2018 FINDINGS: There is a focal airspace consolidation at the right lung base suggesting pneumonia. There is trace fissural fluid on the right. There is at least mild interstitial edema bilaterally. Cardiac silhouette is unremarkable. IMPRESSION: Pulmonary edema bilaterally and a focal consolidation at the right lower lung zone suggesting pneumonia. Electronically signed by Rubio Queen 10/01/2019 7:25 AM 10/01/19 0725 Interpreting Physician: Rubio Queen MD Dictated Date/Time: 10/01/19 0724 cc: Leo Connelly MD; None,PCP) - CONSULTS/PCP/HOSPITALIST Notification #1 *Consult/PCP/Hospitalist*: CHIKA Sepulveda Time Discussed: 08:19 Consult Disposition: Will see in ED, Admit - CHANGE OF SHIFT REPORT (ED Provider) 1 Report Given and Care Transferred to:: Dr. Salinas Time of Transfer: 07:00 Items Pending: Labs, XRAY Results, Other (reassess patient after treatment) Departure - Departure Date of Disposition Decision: 10/01/19 Time of Disposition Decision: 08:19 DIAGNOSIS: Hypertension Qualifiers: Hypertension type: unspecified Qualified Code(s): I10 - Essential (primary) hypertension COPD (chronic obstructive pulmonary disease) Qualifiers: COPD type: unspecified COPD Qualified Code(s): J44.9 - Chronic obstructive pulmonary disease, unspecified Acute exacerbation of CHF (congestive heart failure) Qualifiers: Heart failure type: combined systolic and diastolic Qualified Code(s): I50.43 - Acute on chronic combined systolic (congestive) and diastolic (congestive) hear t failure Right lower lobe pneumonia Qualifiers: Pneumonia type: due to unspecified organism Qualified Code(s): J18.1 - Lobar pneumonia, unspecified organism Sepsis without acute organ dysfunction Qualifiers: Sepsis type: sepsis due to unspecified organism Qualified Code(s): A41.9 - Sepsis, unspecified organism Disposition: ADMITTED INPATIENT 09 Certified Medical Emergency: Emergent Condition: Fair Referrals and Follow-Ups: None,PCP [Primary Care Provider] - - Critical Care Note This patient required my direct & personal management of CC.: Yes Total Time (mins): 45 Critical Care Statement: This patient required my direct personal management to treat or rule out processes, the absence of which, could potentiallly result in sudden, clinically significant life or limb threatening deterioration. Attestation - Physician/ NANCY Attestation Patient care was provided by Advanced Practice Provider:: No The physician spent face to face time with patient:: Yes Advanced Practice Provider documentation review:: Supervising physician onsite and consulted in the evaluation and care of this patient. The physician did have a face to face encounter with the patient.
[2019-10-01 06:48] LABS: ALLEN TEST YES; BLOOD TYPE ARTERIAL; HCO3-(ACT) 27.9 mmoll (20.0-26.0); METHB 0.6 % (0.0-1.5); O2(CT) 13.9 mL/dL (15.0-23.0); PO2(98.6) 64 mmHg (60-100); SAMPLE BLOOD; SAO2 94.8 % (95.0-100.0); THB 10.7 g/dL (11.5-17.4); pH(98.6) 7.33 (7.35-7.45)
[2019-10-01 06:55] LABS: MODALITY CANNULA; PCO2(98.6) 59 mmHg (35-45)
[2019-10-01 07:02] LABS: BASO# 0.01 X1000 (0.0-0.2); BASO% 0.2 % (0.0-0.8); EOS# 0.12 X1000 (0.0-0.7); EOS% 2.8 % (0.0-10.0); HEMATOCRIT 40.1 % (42.0-52.0); HEMOGLOBIN 11.8 g/dL (14.0-18.0); LYMPH# 0.61 X1000 (1.2-3.4); LYMPH% 14.1 % (20.5-51.1); MCH 23.5 PG (27-31); MCHC 29.4 g/dL (33-37); MCV 79.9 FL (81-99); MONO# 0.28 X1000 (0.11-0.59); MONO% 6.5 % (1.7-9.3); MPV 10.3 FL (7.4-10.4); NEUT# 3.32 X1000 (1.4-6.5); NEUT% 76.4 % (42.2-75.2); PLT 187 X1000 (130-400); RBC 5.02 XMIL (4.7-6.1); RDW 15.1 % (11.5-14.5); WBC 4.34 X1000 (4.8-10.8)
[2019-10-01 07:24] LABS: AGAP 13; ALB/GLOB RATIO 1.4; ALBUMIN 4.2 g/dL (3.5-5.0); ALKALINE PHOSPHATASE 159 U/L (32-122); BUN 12 mg/dL (8-22); CALCIUM 9.1 mg/dL (8.8-10.2); CHLORIDE 105 mmol/L (98-107); COSMO 291; CREATININE 0.9 mg/dL (0.7-1.2); ESTIMATED GFR > 60; GLUCOSE 107 mg/dL (70-104); GOT 17 U/L (10-34); GPT 9 U/L (10-44); POTASSIUM 4.7 mmol/L (3.5-5.1); SODIUM 146 mmol/L (136-145); TCO2 28 mmol/L (25-35); TOTAL BILIRUBIN 0.62 mg/dL (0.20-1.00); TOTAL PROTEIN 7.2 g/dL (6.3-8.3)
--- NOTE | 2019-10-01 07:28 | Diag Imaging Result Doc PS360 ---
EXAM: CHEST-PORTABLE INDICATION: shortness of breath TECHNIQUE: 2 views COMPARISON: 07/22/2018 FINDINGS: There is a focal airspace consolidation at the right lung base suggesting pneumonia. There is trace fissural fluid on the right. There is at least mild interstitial edema bilaterally. Cardiac silhouette is unremarkable. IMPRESSION: Pulmonary edema bilaterally and a focal consolidation at the right lower lung zone suggesting pneumonia. Electronically signed by Rubio Queen 10/01/2019 7:25 AM
--- NOTE | 2019-10-01 07:30 | EKG Report ---
Test Performed on : 10/01/2019 06:21:48 AM Test Reason : pain Blood Pressure : / mmHG Vent. Rate : 086 BPM Atrial Rate : 086 BPM P-R Int : 116 ms QRS Dur : 102 ms QT Int : 382 ms P-R-T Axes : 064 067 090 degrees QTc Int : 457 ms Normal sinus rhythm. Nonspecific ST and T wave abnormality Abnormal ECG When compared with ECG of 23-JUL-2018 06:41, T wave inversion no longer evident in Inferior leads Unconfirmed Result
[2019-10-01] MEDS ORDERED: LASIX IV ONE (07:37)
[2019-10-01] MEDS ORDERED: VASOTEC IV ONE (07:37)
[2019-10-01] MEDS ORDERED: NITROGLYCERIN TOP ONE (07:37)
[2019-10-01] MEDS ORDERED: VANCOMYCIN 1 GM/NS 1 GM/250 ML IVPB IV ONE (08:11)
[2019-10-01] MEDS ORDERED: ZOSYN 4.5 GM in NS 100 ML IV ONE (08:11)
[2019-10-01] MEDS ORDERED: ZOFRAN IV PRN (10:03)
[2019-10-01] MEDS ORDERED: MIRALAX PO PRN (10:05)
[2019-10-01] MEDS ORDERED: COLACE PO PRN (10:05)
[2019-10-01] MEDS ORDERED: TYLENOL PO PRN (10:05)
[2019-10-01] MEDS: BREO ELLIPTA 100/25 MCG INH INH SCH (10:15)
[2019-10-01] MEDS ORDERED: DUONEB (A & A) INH PRN (10:22)
[2019-10-01] MEDS ORDERED: VANCOMYCIN IV PER PHARMACY MISC SCH (10:30)
--- NOTE | 2019-10-01 10:59 | HISTORY AND PHYSICAL ---
CHIEF COMPLAINT: Shortness of breath. HISTORY OF PRESENT ILLNESS: This is a 74-year-old gentleman who is a resident at [facility]. He has a history of COPD, on home O2 at 2 L, CVA with left hemiparesis, paroxysmal atrial fibrillation. He presented to the emergency room via EMS, being called by [facility], who stated that the patient's oxygen saturations were 79% on 2 L. EMS stated that on their arrival, his O2 saturations were 96% on 2 L. He denied any fevers, chills, or any chest pain. He stated "I was nervous, I needed something to calm me down, they didn't give it to me, and I just got all upset." He was found to have right lower lobe pneumonia on chest x-ray, and is being admitted for further evaluation and treatment. PAST MEDICAL HISTORY: 1. COPD, on home O2. 2. Coronary artery disease. 3. Opioid dependence. 4. Hypertension. 5. Paroxysmal atrial fibrillation. 6. Prior cerebrovascular accident with residual left-sided weakness. 7. Nicotine dependence. 8. Anxiety with a stated panic attack. PAST SURGICAL HISTORY: Carotid endarterectomy, C-spine fusion, coronary stent placement, cataract surgery, and bilateral hip repair. SOCIAL HISTORY: He is a resident at [facility]. He smokes less than a pack a day, he has for many years. He denies any alcohol or illicit drug use. He is prescription opioid dependent. FAMILY HISTORY: Positive for Alzheimer's in his mother. He denies any diabetes, cancer, or heart disease in his family. ALLERGIES: Morphine, Levaquin, and Haldol. HOME MEDICATIONS: A list will be obtained by the nursing staff, and once verified, will review and restart as appropriate. REVIEW OF SYSTEMS: Discussed with the patient, with pertinent positives stated in the HPI. He denied any syncope, dizziness, any chest pain or palpitations, nausea, vomiting, diarrhea, constipation, any black or bloody vomitus or stools, hematuria, dysuria, frequency, urgency, a productive cough. PHYSICAL EXAMINATION: GENERAL: This is a very pleasant, 74-year-old gentleman, who is lying on the stretcher in the emergency room in no distress. VITAL SIGNS: Blood pressure is 189/82, with a heart rate of 74, respirations are 20 to 23, temperature is 98.9 degrees oral, with O2 saturations 95% to 97% on 2 L nasal cannula. EYES: Pupils equal, round, react to light. EOMs are intact. Sclerae are anicteric. HENT: Head is normocephalic, atraumatic. Mucous membranes are dry. NECK: Supple with trachea midline. No JVD. CARDIOVASCULAR: Regular rate and rhythm. S1 and S2 appreciated. No murmurs. He states the calves are nontender. Peripheral pulses are palpable x4 extremities. PULMONARY: He has expiratory wheezes scattered throughout. Chest rises and falls symmetric with respiration. Chest wall is nontender to palpation. He does have some crackles mid axillary in the right lower lobe. GASTROINTESTINAL: Abdomen is soft, nontender, nondistended with bowel sounds in all 4 quadrants. GENITOURINARY: No CVA nor suprapubic tenderness. NEUROLOGIC: He is alert and oriented x3. LABORATORY DATA: WBC is 4.3, with hemoglobin 11.8, hematocrit 40.1, and platelets of 187,000. D- dimer is 0.65. Sodium 146, potassium 4.7, BUN 12, creatinine 0.9, with a glucose of 107. Alkaline phosphatase is 159, with a troponin of 87, and a proBNP of 4668. Blood cultures are pending. DIAGNOSTICS: Chest x-ray reveals pulmonary edema bilaterally, with focal consolidation at the right lower lobe suggesting pneumonia. ASSESSMENT: 1. Right lower lobe pneumonia. 2. Sepsis without organ dysfunction. 3. Chronic obstructive pulmonary disease acute exacerbation. 4. Hypertension. 5. Anxiety. 6. History of atrial fibrillation. 7. History of prescription opioid dependence. 8. Paroxysmal atrial fibrillation. 9. History of cerebrovascular accident with residual left-sided weakness. PLAN: 1. Admit to medical floor. 2. Incentive spirometer every 4 hours. 3. DuoNebs every 4 hours with every 2 hours p.r.n. 4. Steroids. 5. Continue antibiotic coverage of vancomycin dosed per pharmacy, and Zosyn. 6. Continue supplemental oxygen. 7. Telemetry. 8. Continue Eliquis. 9. Strict I and O. 10. Will get a V/Q lung scan as we are unable to get a CTA pulmonary due to the CT scan being down at this time. 11. Further treatments pending hospital course. Dictated by CHIKA Ball for Meng Motta MD cc: CHIKA Ball MD
[2019-10-01] MEDS ORDERED: DUONEB (A & A) INH SCH (11:30)
[2019-10-01] MEDS: NORCO-7.5 PO PRN ×2 (11:47→18:52)
--- NOTE | 2019-10-01 13:10 | Diag Imaging Result Doc PS360 ---
LUNG SCAN / VQ - 10/01/2019 INDICATION: rll infiltrate, elevated d-dimer TECHNIQUE: 39.6 mCi of DTPA was used for inhalation. 5.2 mCi of MAA was used for injection. COMPARISON: Chest x-ray earlier today FINDINGS: There is no pulmonary perfusion defect. There is some heterogeneous ventilation of the lungs and areas of infiltrate compatible with pneumonia or pulmonary edema. IMPRESSION: Low probability for pulmonary embolism. Electronically signed by Dustin Mathis 10/01/2019 1:07 PM
[2019-10-01] MEDS: VITAMIN C PO SCH (14:25)
[2019-10-01] MEDS: ASPIRIN PO SCH (14:25)
[2019-10-01] MEDS: FERROUS SULFATE PO SCH (14:25)
[2019-10-01] MEDS: CYMBALTA PO SCH (14:25)
[2019-10-01] MEDS: SYNTHROID PO SCH (14:26)
[2019-10-01] MEDS: PRILOSEC PO SCH (14:26)
[2019-10-01] MEDS: FLOMAX PO SCH (14:26)
[2019-10-01] MEDS: CARDIZEM PO SCH (14:26)
[2019-10-01] MEDS: ELIQUIS PO SCH ×2 (14:26→22:11)
[2019-10-01] MEDS: SOLU-MEDROL IV SCH ×2 (14:33→22:11)
[2019-10-01] MEDS: ZOSYN 3.375 GM in NS 50 ML IV SCH ×2 (14:34→22:11)
[2019-10-01] MEDS ORDERED: ATARAX PO ONE (15:07)
[2019-10-01] MEDS: NICODERM PATCH TD SCH (15:44)
--- NOTE | 2019-10-01 17:33 | HISTORY AND PHYSICAL ---
OBJECTIVE: Blood pressure is 154/63, heart rate 71, respiratory rate 23, temperature 98.3 degrees. The patient came in with shortness of breath, COPD. He has hypoxic respiratory failure due to right lower lobe pneumonia, atrial fibrillation. He is on apixaban. His V/Q was negative. We had an alternative diagnosis, and I guess we got it because the D-dimer was elevated. I do not know but any case he has got pneumonia, COPD, not clear heart failure exacerbation. cc: Meng Motta MD
[2019-10-01] MEDS: DUONEB (A & A) INH SCH ×2 (18:20→22:30)
[2019-10-01] MEDS: FLONASE NAS SCH (18:46)
[2019-10-01] MEDS ORDERED: LIPITOR PO SCH (21:00)
[2019-10-01] MEDS: NEURONTIN PO SCH (22:11)
[2019-10-02] MEDS: ZOSYN 3.375 GM in NS 50 ML IV SCH ×4 (01:17→21:03)
[2019-10-02] MEDS: NORCO-7.5 PO PRN ×4 (01:17→21:00)
[2019-10-02] MEDS: VANCOMYCIN 1 GM/NS 1 GM/250 ML IVPB IV SCH (01:17)
[2019-10-02 05:38] LABS: HEMATOCRIT 33.3 % (42.0-52.0); HEMOGLOBIN 9.7 g/dL (14.0-18.0); IMM GRAN# 0.03 X1000 (0.0-0.04); IMM GRAN% 0.3 % (0.0-0.5); LYMPH# 0.48 X1000 (1.2-3.4); LYMPH% 4.8 % (20.5-51.1); MCH 23.2 PG (27-31); MCHC 29.1 g/dL (33-37); MCV 79.7 FL (81-99); MONO# 0.17 X1000 (0.11-0.59); MONO% 1.7 % (1.7-9.3); MPV 10.2 FL (7.4-10.4); NEUT# 9.27 X1000 (1.4-6.5); NEUT% 93.2 % (42.2-75.2); PLT 197 X1000 (130-400); RBC 4.18 XMIL (4.7-6.1); RDW 14.8 % (11.5-14.5); WBC 9.95 X1000 (4.8-10.8)
[2019-10-02] MEDS: DUONEB (A & A) INH SCH ×4 (05:40→21:15)
[2019-10-02 06:06] LABS: AGAP 13; ALB/GLOB RATIO 1.3; ALBUMIN 3.3 g/dL (3.5-5.0); ALKALINE PHOSPHATASE 106 U/L (32-122); BUN 20 mg/dL (8-22); CALCIUM 8.2 mg/dL (8.8-10.2); CHLORIDE 100 mmol/L (98-107); COSMO 283; CREATININE 0.9 mg/dL (0.7-1.2); ESTIMATED GFR > 60; GLUCOSE 176 mg/dL (70-104); GOT 11 U/L (10-34); GPT 6 U/L (10-44); SODIUM 138 mmol/L (136-145); TCO2 25 mmol/L (25-35); TOTAL PROTEIN 5.8 g/dL (6.3-8.3)
[2019-10-02] MEDS: SOLU-MEDROL IV SCH ×3 (06:10→21:03)
[2019-10-02] MEDS: SYNTHROID PO SCH ×2 (06:10→08:29)
[2019-10-02 07:13] LABS: BANDS 2 % (0-1); LYMPHS 6 % (21-51); SEGS 92 % (42-75)
[2019-10-02 07:14] LABS: HYPOCHROM 1+
[2019-10-02] MEDS: NEURONTIN PO SCH ×2 (08:28→21:04)
[2019-10-02] MEDS: ELIQUIS PO SCH ×2 (08:28→21:03)
[2019-10-02] MEDS: CARDIZEM PO SCH (08:28)
[2019-10-02] MEDS: ZYRTEC PO SCH (08:29)
[2019-10-02] MEDS: VITAMIN C PO SCH (08:29)
[2019-10-02] MEDS: CYMBALTA PO SCH (08:29)
[2019-10-02] MEDS: PRILOSEC PO SCH (08:29)
[2019-10-02] MEDS: FLOMAX PO SCH (08:29)
[2019-10-02] MEDS: ASPIRIN PO SCH (08:30)
[2019-10-02] MEDS: FERROUS SULFATE PO SCH (08:30)
[2019-10-02] MEDS: NICODERM PATCH TD SCH (08:33)
[2019-10-02] MEDS: FLONASE NAS SCH (08:33)
[2019-10-02] MEDS: BREO ELLIPTA 100/25 MCG INH INH SCH (08:38)
[2019-10-02] MEDS ORDERED: ZOSTRIX TOP PRN (16:49)
--- NOTE | 2019-10-02 17:22 | PROGRESS NOTE ---
DATE: 10/02/2019 SUBJECTIVE: Patient has no major complaints. OBJECTIVE: Blood pressure 129/44, heart rate 60, respiratory rate 18, temperature 98.3 degrees, and 99% on 2 L.Cardiovascular: Regular rate and rhythm. Pulmonary: Bilateral breath sounds. Clear to auscultation. GI: Soft. Nontender and nondistended. Bowel sounds are positive. LABORATORY DATA: White count is 9, hemoglobin and hematocrit 9 and 33, and platelets of 197,000. Basic was okay. PROBLEM LIST: 1. Acute chronic obstructive pulmonary disease exacerbation. We will continue treatment. 2. Right lower lobe pneumonia. He is on antibiotics and seems to be doing better. Micro has not revealed any pathology at this point. His lungs sound better. He is on oxygen as needed at home. I get a sense he is not completely compliant with it. 3. Atrial fibrillation appears to be stable. He is on apixaban. DISPOSITION: Possible discharge tomorrow. His labs look okay, but we will evaluate him for lower blood counts. He is already on iron, so I think he has known iron deficiency. We will check those levels tomorrow. Pending his clinical status. We will continue to monitor closely. cc: Meng Motta MD
[2019-10-02] MEDS ORDERED: REMERON PO SCH (21:00)
[2019-10-02] MEDS ORDERED: LIPITOR PO SCH (21:00)
[2019-10-03] MEDS: VANCOMYCIN 1 GM/NS 1 GM/250 ML IVPB IV SCH (00:48)
[2019-10-03] MEDS: ZOSYN 3.375 GM in NS 50 ML IV SCH ×3 (02:05→14:50)
[2019-10-03 05:31] LABS: HEMATOCRIT 30.7 % (42.0-52.0); HEMOGLOBIN 9.1 g/dL (14.0-18.0); IMM GRAN# 0.03 X1000 (0.0-0.04); IMM GRAN% 0.3 % (0.0-0.5); LYMPH# 0.46 X1000 (1.2-3.4); MCH 23.6 PG (27-31); MCHC 29.6 g/dL (33-37); MCV 79.7 FL (81-99); MONO# 0.17 X1000 (0.11-0.59); MONO% 1.5 % (1.7-9.3); MPV 10.6 FL (7.4-10.4); NEUT# 10.98 X1000 (1.4-6.5); NEUT% 94.2 % (42.2-75.2); PLT 176 X1000 (130-400); RBC 3.85 XMIL (4.7-6.1); RDW 14.9 % (11.5-14.5); WBC 11.64 X1000 (4.8-10.8)
[2019-10-03 05:41] LABS: AGAP 9; BUN 28 mg/dL (8-22); CALCIUM 8.5 mg/dL (8.8-10.2); CHLORIDE 100 mmol/L (98-107); COSMO 286; ESTIMATED GFR > 60; GLUCOSE 161 mg/dL (70-104); IRON SATURATION 7 %; SODIUM 139 mmol/L (136-145); TCO2 30 mmol/L (25-35); TIBC 246 ug/dL; TOTAL IRON 17 ug/dL (53-167); UNBOUND IRON 229 ug/dL (112-346)
[2019-10-03] MEDS: DUONEB (A & A) INH SCH ×3 (05:51→15:44)
[2019-10-03] MEDS: NORCO-7.5 PO PRN ×2 (05:53→12:56)
[2019-10-03] MEDS: SOLU-MEDROL IV SCH ×2 (05:54→14:50)
[2019-10-03] MEDS: CARDIZEM PO SCH (09:07)
[2019-10-03] MEDS: ZYRTEC PO SCH (09:07)
[2019-10-03] MEDS: FLOMAX PO SCH (09:08)
[2019-10-03] MEDS: SYNTHROID PO SCH (09:08)
[2019-10-03] MEDS: CYMBALTA PO SCH (09:08)
[2019-10-03] MEDS: FERROUS SULFATE PO SCH (09:08)
[2019-10-03] MEDS: VITAMIN C PO SCH (09:08)
[2019-10-03] MEDS: NEURONTIN PO SCH (09:08)
[2019-10-03] MEDS: ASPIRIN PO SCH (09:08)
[2019-10-03] MEDS: NICODERM PATCH TD SCH (09:08)
[2019-10-03] MEDS: PRILOSEC PO SCH (09:08)
[2019-10-03] MEDS: FLONASE NAS SCH (09:16)
[2019-10-03] MEDS: BREO ELLIPTA 100/25 MCG INH INH SCH (09:46)
[2019-10-03] MEDS: ELIQUIS PO SCH (09:48)
--- NOTE | 2019-10-03 13:12 | Diag Imaging Result Doc PS360 ---
CHEST-PORTABLE - 10/03/2019 INDICATION: dyspnea COMPARISON: 10/01/2019 FINDINGS: There has been improvement in the diffuse bilateral interstitial pulmonary edema. There is some stable linear opacity in the right lung probably atelectasis. No pneumothorax or large pleural effusion. Heart size is top normal. IMPRESSION: Significant improvement of the interstitial pulmonary edema. Electronically signed by Dustin Mathis 10/03/2019 1:09 PM
--- NOTE | 2019-10-03 13:59 | DISCHARGE SUMMARY ---
ADMISSION DATE: 10/01/2019 DISCHARGE DATE: 10/03/2019 PERTINENT PROCEDURES: V/Q scan, low probability for PE. DISCHARGE DIAGNOSES: 1. Acute chronic obstructive pulmonary disease exacerbation, improved. 2. Right lower lobe pneumonia. The patient will be discharged on home breathing treatments. 3. Atrial fibrillation, stable on apixaban. HOSPITAL COURSE: Briefly, Mr. Del Angel is a 74-year-old gentleman, a resident of [facility], who has COPD - on home O2, CVA with left hemiparesis, paroxysmal atrial fibrillation. Presented to the ED for low O2 saturations at 79% on 2 L. However, when EMS arrived, his O2 saturations were 96%. He was found to have a right lower lobe pneumonia on chest x-ray, and admitted for further evaluation and treatment. His COPD exacerbation has resolved. His ammonia has improved and will be discharged back to [facility] where he is a long-term resident. HOME MEDICATIONS: Unchanged. FOLLOWUP: Mr. Del Angel is being discharged back to [facility] where he is a long-term resident. He is take all medications as prescribed. He is encouraged to wear his home O2. He can return to the ED or call 911 for any worsening of symptoms. Dictated by CHIKA Navarrete for Meng Motta MD cc: Meng Motta MD
--- NOTE | 2019-10-03 16:05 | PROGRESS NOTE ---
DATE: 10/03/2019 Patient is breathing better today. His chest x-ray looks improved and interstitial edema. This is acute chronic obstructive pulmonary disease exacerbation with right lower lobe pneumonia. He is doing better on antibiotics. Plan to discharge today. In addition to, we will do a prednisone taper and Augmentin 500 every 12 for another 10 days. Discharge condition is stable, 94% on 2 L. Repeat chest x-ray in 4 to 6 weeks. cc: Meng Motta MD
[2019-10-03 16:50] VITALS: BP 129/47
== END 2019-10-03 17:19 | DRG 190 ==
LOC: ED 04:52 → EDIPHOLD 12:25 → 1N 16:36
PROVIDERS: ATTEND Internal Medicine